=== PATIENT | female | born 2000 | race Hispanic/Latino ===

== ENCOUNTER 2018-09-29 01:14 | Emergency (ER) | payer OTHER, SELFPAY ==
[2018-09-29] MEDS ORDERED: FAMOTIDINE 20 MG TAB ONE (02:18)
[2018-09-29] MEDS ORDERED: ONDANSETRON 4 MG (ODT) TAB ONE (02:18)
--- NOTE | 2018-09-29 02:48 | EDPHYS ---
Physician Documentation [facility] Name: Adriana Freed Age: 17 yrs Sex: Female : 2000 Arrival Date: 09/29/2018 Time: 01:18 Bed 7 Private MD: ED Physician Reza Adair HPI: 09/29 01:40 This 17 yrs old Female presents to ER via Ambulatory with complaints of cp Vomiting. 01:40 The patient presents to the emergency department with nausea, that is moderate, cp vomiting, that is intermittent. 01:40 Onset: The symptoms/episode began/occurred today. Possible causes: unknown. Associated cp signs and symptoms: Pertinent positives: abdominal pain, Pertinent negatives: anorexia, constipation, diarrhea, fever. Severity of symptoms: in the emergency department the symptoms are unchanged despite home interventions. 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 - Social history:: Smoking status: Patient/guardian denies using tobacco. - Ebola Screening: : Patient negative for fever greater than or equal to 101.5 degrees Fahrenheit, and additional compatible Ebola Virus Disease symptoms Patient denies exposure to infectious person Patient denies travel to an Ebola-affected area in the 21 days before illness onset No symptoms or risks identified at this time. ROS: 01:45 Constitutional: Negative for body aches, chills, fever, poor PO intake. cp 01:45 Eyes: Negative for injury, pain, redness, and discharge. cp 01:45 ENT: Negative for drainage from ear(s), difficulty swallowing, difficulty handling secretions. 01:45 Respiratory: Negative for cough, shortness of breath, wheezing. 01:45 Abdomen/GI: Positive for abdominal pain, nausea and vomiting, Negative for diarrhea, constipation, anorexia, black/tarry stool, rectal bleeding. 01:45 Back: Negative for pain at rest, pain with movement, radiated pain. 01:45 Skin: Negative for rash. 01:45 Neuro: Negative for headache, weakness. 01:45 All other systems are negative. Exam: 01:50 Constitutional: The patient appears in no acute distress, alert, awake, non-toxic, well cp developed, well nourished. 01:50 Head/Face: Normocephalic, atraumatic. cp 01:50 Eyes: Periorbital structures: appear normal, Conjunctiva: normal, no exudate, no injection, Sclera: no appreciated abnormality, Lids and lashes: appear normal, bilaterally. 01:50 ENT: External ear(s): are unremarkable, Nose: is normal, Mouth: Lips: moist, Oral mucosa: pink and intact, moist, Posterior pharynx: is normal, airway is patent, no erythema, no exudate. 01:50 Chest/axilla: Inspection: normal, Palpation: is normal, no crepitus, no tenderness. 01:50 Cardiovascular: Rate: tachycardic, Rhythm: regular. 01:50 Respiratory: the patient does not display signs of respiratory distress, Respirations: normal, no use of accessory muscles, no retractions, no splinting, no tachypnea, labored breathing, is not present, Breath sounds: are clear throughout, no decreased breath sounds, no stridor, no wheezing. 01:50 Abdomen/GI: Inspection: abdomen appears normal, Bowel sounds: active, all quadrants, Palpation: soft, in all quadrants, mild abdominal tenderness, in the epigastric area, rebound tenderness, is not appreciated, voluntary guarding, is not appreciated, involuntary guarding, is not appreciated. 01:50 Back: pain, is absent, ROM is normal. Vital Signs: 01:21 BP 141 / 96; Pulse 110; Resp 20; Temp 98.2; Pulse Ox 99% on R/A; Weight 81.65 kg; ed1 Height 5 ft. 3 in. (160.02 cm); Pain 5/10; 03:12 BP 113 / 71; Pulse 90; Resp 18; Pulse Ox 98% on R/A; ea 01:21 Body Mass Index 31.89 (81.65 kg, 160.02 cm) ed1 MDM: 01:36 Patient medically screened. cp 02:00 Differential diagnosis: gastritis, cholecystitis, pancreatitis, appendicitis, viral cp gastroenteritis, gastroenteritis. 02:46 Data reviewed: vital signs, nurses notes. cp 02:46 Counseling: I had a detailed discussion with the patient and/or guardian regarding: the cp historical points, exam findings, and any diagnostic results supporting the discharge/admit diagnosis, to return to the emergency department if symptoms worsen or persist or if there are any questions or concerns that arise at home. Response to treatment: the patient's symptoms have markedly improved after treatment, and as a result, I will discharge patient. 09/29 02:16 Order name: PO challenge; Complete Time: 03:35 cp Administered Medications: 02:07 Drug: Zofran 4 mg Route: PO; lp1 03:00 Follow up: Response: No adverse reaction; Marked relief of symptoms ea 02:43 Drug: Pepcid 20 mg Route: PO; lp1 03:35 Follow up: Response: No adverse reaction; Marked relief of symptoms ea Disposition: 06:37 Co-signature as Attending Physician, Reza Adair MD. rn Disposition: 09/29/18 02:47 Discharged to Home. Impression: Nausea and vomiting. - Condition is Stable. - Discharge Instructions: Nausea and Vomiting, Adult. - Prescriptions for Pepcid 20 mg Oral Tablet - take 1 tablet by ORAL route every 12 hours for 5 days; 10 tablet. Zofran 4 mg Oral Tablet - take 1 tablet by ORAL route every 12 hours As needed; 20 tablet. - Work release form, Medication Reconciliation Form, Thank You Letter, Antibiotic Education, Prescription Opioid Use form. - Follow up: Private Physician; When: 1 - 2 days; Reason: Worsening of condition. - Problem is new. - Symptoms have improved. Signatures: Reza Adair MD MD rn Riggs, Erika RN RN ed1 María Duke RN RN lp1 Unruly Soto PA PA cp Cheryle Street RN RN ea Corrections: (The following items were deleted from the chart) 03:39 02:47 09/29/2018 02:47 Discharged to Home. Impression: Nausea and vomiting. Condition ea is Stable. Forms are Medication Reconciliation Form, Thank You Letter, Antibiotic Education, Prescription Opioid Use. Follow up: Private Physician; When: 1 - 2 days; Reason: Worsening of condition. Problem is new. Symptoms have improved. cp
--- NOTE | 2018-09-29 02:48 | ER ---
Nurse's Notes [facility] Name: Adriana Freed Age: 17 yrs Sex: Female : 2000 Arrival Date: 09/29/2018 Time: 01:18 Bed 7 Private MD: Diagnosis: Nausea and vomiting Presentation: 09/29 01:20 Presenting complaint: Patient states: My stomach hurts and I have been throwing up. I ed1 never throw up. Transition of care: patient was not received from another setting of care. Onset of symptoms was September 29, 2018. Risk Assessment: Do you want to hurt yourself or someone else? Patient reports no desire to harm self or others. Initial Sepsis Screen: Does the patient meet any 2 criteria? No. Patient's initial sepsis screen is negative. Does the patient have a suspected source of infection? No. Patient's initial sepsis screen is negative. Care prior to arrival: None. 01:20 Method Of Arrival: Ambulatory ed1 01:20 Acuity: FREDIS 3 ed1 Triage Assessment: 01:21 General: Appears uncomfortable, Behavior is calm, cooperative. Pain: Complains of pain ed1 in abdomen Pain currently is 5 out of 10 on a pain scale. GI: Reports lower abdominal pain, nausea, vomiting, Patient currently denies diarrhea. 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 - Social history:: Smoking status: Patient/guardian denies using tobacco. - Ebola Screening: : Patient negative for fever greater than or equal to 101.5 degrees Fahrenheit, and additional compatible Ebola Virus Disease symptoms Patient denies exposure to infectious person Patient denies travel to an Ebola-affected area in the 21 days before illness onset No symptoms or risks identified at this time. Screenin:39 Abuse screen: Denies threats or abuse. Denies injuries from another. Nutritional lp1 screening: No deficits noted. Tuberculosis screening: No symptoms or risk factors identified. Fall Risk None identified. Assessment: 02:00 General: Appears uncomfortable, Behavior is appropriate for age. Pain: Complains of lp1 pain in abdomen. Neuro: No deficits noted. Cardiovascular: No deficits noted. Respiratory: No deficits noted. GI: Abdomen is non-distended, Bowel sounds present X 4 quads. Reports nausea, vomiting. : No deficits noted. EENT: No deficits noted. Derm: Skin is pink, warm \T\ dry. Musculoskeletal: No deficits noted. 02:43 Reassessment: Patient states episode of vomiting; States nausea feeling improved after lp1 vomiting; drinking water at this time. 03:30 Reassessment: Patient and/or family updated on plan of care and expected duration. Pain ea level reassessed. Patient is alert, oriented x 3, equal unlabored respirations, skin warm/dry/pink. Discharge instruction given to patient, verbalized the understanding of instruction. No s/s of pain or discomfort noted at this time. Patient states feeling better. Patient states symptoms have improved. Vital Signs: 01:21 BP 141 / 96; Pulse 110; Resp 20; Temp 98.2; Pulse Ox 99% on R/A; Weight 81.65 kg; ed1 Height 5 ft. 3 in. (160.02 cm); Pain 5/10; 03:12 BP 113 / 71; Pulse 90; Resp 18; Pulse Ox 98% on R/A; ea 01:21 Body Mass Index 31.89 (81.65 kg, 160.02 cm) ed1 ED Course: 01:18 Patient arrived in ED. am2 01:20 Triage completed. ed1 01:22 Arm band placed on right wrist. ed1 01:24 Unruly Soto PA is PHCP. cp 01:24 Reza Adair MD is Attending Physician. cp 02:04 María Duke, BRITT is Primary Nurse. lp1 02:40 Patient has correct armband on for positive identification. lp1 03:36 No provider procedures requiring assistance completed. Patient did not have IV access ea during this emergency room visit. Administered Medications: 02:07 Drug: Zofran 4 mg Route: PO; lp1 03:00 Follow up: Response: No adverse reaction; Marked relief of symptoms ea 02:43 Drug: Pepcid 20 mg Route: PO; lp1 03:35 Follow up: Response: No adverse reaction; Marked relief of symptoms ea Outcome: 02:47 Discharge ordered by . cp 03:36 Discharged to home ambulatory, with significant other. ea 03:36 Condition: improved 03:36 Discharge instructions given to patient, Instructed on discharge instructions, follow up and referral plans. medication usage, Demonstrated understanding of instructions, follow-up care, medications, Prescriptions given X 2. 03:39 Patient left the ED. ea Signatures: Bianca De La Cruz RN RN ed1 María Duke RN RN lp1 Unruly Soto PA PA cp Moreno, Amanda am2 Cheryle Street RN RN ea Corrections: (The following items were deleted from the chart) 01:22 01:21 BP 141 / 96; Pulse 110bpm; Resp 20bpm; Pulse Ox 99% RA; Temp 98.2F; 81.65 kg; ed1 Height 5 ft. 3 in.; BMI: 31.8; ed1
[2018-09-29 04:24] VITALS: TEMP 98.2
[2018-09-29 04:25] VITALS: BP 113/71; O2SAT 98
== END 2018-09-29 03:39 | disposition home or self-care (01) ==
LOC: ER 01:14
DX: R11.2 Nausea with vomiting, unspecified (principal)
CPT/HCPCS: 99283

== ENCOUNTER 2019-05-10 22:22 | Emergency (ER) | payer SELFPAY ==
[2019-05-10] MEDS ORDERED: NA CHLORIDE 0.9% 1,000 ML ONE (22:49)
[2019-05-10 23:24] LABS: Absolute Lymphocytes (CBC) 1.3 K/uL (0.7-4.9); Basophils % 0.5 % (0-1.3); Hematocrit 40.6 % (36.0-45.0); Lymphocytes % 23.6 % (15.3-44.8); MPV 9.8 fL (7.6-11.3); RBC Red Blood Cell Count 4.87 M/uL (3.86-4.86)
[2019-05-10 23:27] LABS: Urine Blood TRACE (NEG); Urine Glucose NEGATIVE (NEG); Urine Protein 1+ (NEG)
[2019-05-10 23:48] LABS: Albumin 3.9 g/dL (3.4-5.0); Bilirubin Direct 0.1 mg/dL (0-0.2); Bilirubin Total 0.4 mg/dL (0.2-1.0); Potassium 3.2 mmol/L (3.5-5.1); Protein, Total 7.9 g/dL (6.4-8.2)
--- NOTE | 2019-05-10 23:55 | ER ---
Nurse's Notes [facility] Name: Adriana Freed Age: 18 yrs Sex: Female : 2000 Arrival Date: 05/10/2019 Time: 22:25 Bed 6 Private MD: Diagnosis: Streptococcal pharyngitis; state, incidental Presentation: 05/10 22:30 Presenting complaint: Patient states: started last Wednesday chills , headache, stomach rr5 pain, on and off fever max of T 101 F, I am taking tylenol but it's not working. feels like a flu symptoms, feels nauseous but no vomiting. 22:30 Transition of care: patient was not received from another setting of care. Onset of rr5 symptoms was May 08, 2019. Risk Assessment: Do you want to hurt yourself or someone else? Patient reports no desire to harm self or others. Initial Sepsis Screen: Does the patient meet any 2 criteria? No. Patient's initial sepsis screen is negative. Does the patient have a suspected source of infection? No. Patient's initial sepsis screen is negative. Care prior to arrival: Medication(s) given: Tylenol. 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 - Social history:: Smoking status: Patient/guardian denies using tobacco, Patient/guardian denies using alcohol, street drugs. - Ebola Screening: : Patient negative for fever greater than or equal to 101.5 degrees Fahrenheit, and additional compatible Ebola Virus Disease symptoms Patient denies exposure to infectious person Patient denies travel to an Ebola-affected area in the 21 days before illness onset. Vital Signs: 22:38 BP 143 / 80; Pulse 116; Resp 19; Temp 99.1; Pulse Ox 99% ; Weight 77.11 kg; Height 5 rr5 ft. 4 in. (162.56 cm); Pain 6/10; 05/11 00:00 BP 125 / 80; Pulse 118; Resp 18; Temp 100.4; Pulse Ox 99% ; rr5 12 22:38 Body Mass Index 29.18 (77.11 kg, 162.56 cm) rr5 ED Course: 05/10 22:25 Patient arrived in ED. ag3 22:28 Stoney Vasquez, RN is Primary Nurse. rr5 22:36 Sony[facility] Morales [facility]C [facility]. snw 22:36 Chad Welch MD is Attending Physician. snw 22:38 Triage completed. rr5 22:39 Arm band placed on. rr5 22:40 Flu and/or RSV swab sent to lab. Strep swab sent to lab. rr5 23:00 Inserted saline lock: 20 gauge in right antecubital area, using aseptic technique. rr5 Blood collected. Administered Medications: 23:00 Drug: NS 0.9% 1000 ml Route: IV; Rate: 1 bolus; Site: right antecubital; rr5 05/11 00:00 Drug: Potassium Chloride 40 mEq Route: PO; rr5 00:15 Drug: Bicillin L-A 2.4 million units {Note: left gluteus 2ml and right gluteus 2ml.} rr5 Route: IM; Site: left gluteus; 00:20 Drug: Tylenol 1000 mg Route: PO; rr5 Outcome: 05/10 23:54 Discharge ordered by . snw 05/11 00:54 Patient left the ED. rr5 Signatures: Sonya Morales FNP-C CATEGORY ANALYST-Csnw Radha Lee 3 Stoney Vasquez, RN RN rr5
--- NOTE | 2019-05-10 23:56 | EDPHYS ---
Physician Documentation [facility] Name: Adriana Freed Age: 18 yrs Sex: Female : 2000 Arrival Date: 05/10/2019 Time: 22:25 Bed 6 Private MD: ED Physician Chad Welch HPI: 05/11 00:00 This 18 yrs old Female presents to ER via Ambulatory with complaints of Fever. snw 00:00 The patient reports fever, not measured (subjective). Onset: The symptoms/episode snw began/occurred suddenly, 3 day(s) ago, and became persistent. Associated signs and symptoms: Pertinent positives: decreased appetite, nausea. Severity of symptoms: At their worst the symptoms were moderate. It is unknown whether or not the patient has had similar symptoms in the past. It is unknown whether or not the patient has recently seen a physician. 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 - Social history:: Smoking status: Patient/guardian denies using tobacco, Patient/guardian denies using alcohol, street drugs. - Ebola Screening: : Patient negative for fever greater than or equal to 101.5 degrees Fahrenheit, and additional compatible Ebola Virus Disease symptoms Patient denies exposure to infectious person Patient denies travel to an Ebola-affected area in the 21 days before illness onset. ROS: 23:57 Eyes: Negative for injury, pain, redness, and discharge, ENT: Negative for injury, snw pain, and discharge, Neck: Negative for injury, pain, and swelling, Cardiovascular: Negative for chest pain, palpitations, and edema, Respiratory: Negative for shortness of breath, cough, wheezing, and pleuritic chest pain. 23:57 Back: Negative for injury and pain, : Negative for injury, bleeding, discharge, and swelling, MS/Extremity: Negative for injury and deformity, Skin: Negative for injury, rash, and discoloration, Neuro: Negative for headache, weakness, numbness, tingling, and seizure, Hematologic/Lymphatic: Negative for swollen nodes, abnormal bleeding, and unusual bruising. 23:57 Constitutional: Positive for body aches, fever, poor PO intake. 23:57 Abdomen/GI: Positive for nausea. Exam: 05/11 00:46 Constitutional: This is a well developed, well nourished patient who is awake, alert, snw and in no acute distress. Head/Face: Normocephalic, atraumatic. Eyes: Pupils equal round and reactive to light, extra-ocular motions intact. Lids and lashes normal. Conjunctiva and sclera are non-icteric and not injected. Cornea within normal limits. Periorbital areas with no swelling, redness, or edema. ENT: Nares patent. No nasal discharge, no septal abnormalities noted. Tympanic membranes are normal and external auditory canals are clear. Oropharynx with no redness, swelling, or masses, exudates, or evidence of obstruction, uvula midline. Mucous membranes moist. Neck: Trachea midline, no thyromegaly or masses palpated, and no cervical lymphadenopathy. Supple, full range of motion without nuchal rigidity, or vertebral point tenderness. No Meningismus. Chest/axilla: Normal chest wall appearance and motion. Nontender with no deformity. No lesions are appreciated. Cardiovascular: Tachycardic rate and rhythm with a normal S1 and S2. No gallops, murmurs, or rubs. Normal PMI, no JVD. No pulse deficits. Respiratory: Lungs have equal breath sounds bilaterally, clear to auscultation and percussion. No rales, rhonchi or wheezes noted. No increased work of breathing, no retractions or nasal flaring. Abdomen/GI: Soft, non-tender, with normal bowel sounds. No distension or tympany. No guarding or rebound. No evidence of tenderness throughout. Back: No spinal tenderness. No costovertebral tenderness. Full range of motion. Skin: Warm, dry with normal turgor. Normal color with no rashes, no lesions, and no evidence of cellulitis. MS/ Extremity: Pulses equal, no cyanosis. Neurovascular intact. Full, normal range of motion. Neuro: Awake and alert, GCS 15, oriented to person, place, time, and situation. Cranial nerves II-XII grossly intact. Motor strength 5/5 in all extremities. Sensory grossly intact. Cerebellar exam normal. Normal gait. Psych: Awake, alert, with orientation to person, place and time. Behavior, mood, and affect are within normal limits. Vital Signs: 05/10 22:38 BP 143 / 80; Pulse 116; Resp 19; Temp 99.1; Pulse Ox 99% ; Weight 77.11 kg; Height 5 rr5 ft. 4 in. (162.56 cm); Pain 6/10; 05/11 00:00 BP 125 / 80; Pulse 118; Resp 18; Temp 100.4; Pulse Ox 99% ; rr5 05/10 22:38 Body Mass Index 29.18 (77.11 kg, 162.56 cm) rr5 MDM: 05/10 22:41 Patient medically screened. snw 23:56 Data reviewed: vital signs, nurses notes. Data interpreted: Pulse oximetry: on room air snw is 99 %. Interpretation: normal. Counseling: I had a detailed discussion with the patient and/or guardian regarding: the historical points, exam findings, and any diagnostic results supporting the discharge/admit diagnosis, the presence of at least one elevated blood pressure reading (>120/80) during this emergency department visit, lab results, the need for outpatient follow up, to return to the emergency department if symptoms worsen or persist or if there are any questions or concerns that arise at home. Admission orders: after a detailed discussion of the patient's condition and case, the admit orders are written by me. Special discussion: I have referred the patient to see his PCP for further evaluation of high blood pressure. Based on the history and exam findings, there is no indication for further emergent testing or inpatient evaluation. I discussed with the patient/guardian the need to see the OB Gyne specialist for further evaluation of the symptoms. I discussed with the patient/guardian the need to see the primary care provider for further evaluation of the symptoms. 05/10 22:39 Order name: Flu; Complete Time: 23:51 rr5 05/10 22:43 Order name: Basic Metabolic Panel; Complete Time: 23:51 snw 05/10 22:43 Order name: CBC with Diff; Complete Time: 23:34 snw 05/10 22:43 Order name: Creatinine for Radiology; Complete Time: 23:46 snw 05/10 22:43 Order name: Hepatic Function; Complete Time: 23:51 snw 05/10 22:43 Order name: Lipase; Complete Time: 23:51 snw 05/10 22:46 Order name: Strep; Complete Time: 23:51 snw 05/10 23:08 Order name: Urine Culture snw 05/10 23:08 Order name: Urine Microscopic Only; Complete Time: 00:09 snw 05/10 23:17 Order name: Urine Dipstick--Ancillary (enter results); Complete Time: 23:34 cm6 05/10 23:17 Order name: Urine --Ancillary (enter results); Complete Time: 23:34 cm6 05/10 22:43 Order name: Labs collected and sent; Complete Time: 23:14 snw 05/10 23:08 Order name: Urine Test (obtain specimen); Complete Time: 23:14 snw 05/10 23:08 Order name: Urine Dipstick-Ancillary (obtain specimen); Complete Time: 23:15 snw Administered Medications: 23:00 Drug: NS 0.9% 1000 ml Route: IV; Rate: 1 bolus; Site: right antecubital; rr5 05/11 00:00 Drug: Potassium Chloride 40 mEq Route: PO; rr5 00:15 Drug: Bicillin L-A 2.4 million units {Note: left gluteus 2ml and right gluteus 2ml.} rr5 Route: IM; Site: left gluteus; 00:20 Drug: Tylenol 1000 mg Route: PO; rr5 Disposition: 05/10/19 23:54 Discharged to Home. Impression: Streptococcal pharyngitis, state, incidental. - Condition is Stable. - Discharge Instructions: Fever, Adult, Strep Throat, First Trimester of , Qren-iv-Iaoh, Immunizations and , Rehydration, Adult, Eating Plan for Women. - Prescriptions for Vitamin 27- 0.8 mg Oral Tablet - take 1 tablet by ORAL route once daily; 60 tablet. - Work release form, Medication Reconciliation Form, Thank You Letter, Antibiotic Education, Prescription Opioid Use form. - Follow up: Private Physician; When: 2 - 3 days; Reason: Recheck today's complaints, Continuance of care, Re-evaluation by your physician. Follow up: Emergency Department; When: As needed; Reason: Worsening of condition. Signatures: Dispatcher [employer] EDSonya Alanis FNP-C CLINIC MANAGER-Csnw Stoney Vasquez, RN RN rr5 Corrections: (The following items were deleted from the chart) 00:54 12 23:54 05/10/2019 23:54 Discharged to Home. Impression: Streptococcal pharyngitis; rr5 state, incidental. Condition is Stable. Forms are Medication Reconciliation Form, Thank You Letter, Antibiotic Education, Prescription Opioid Use. Follow up: Private Physician; When: 2 - 3 days; Reason: Recheck today's complaints, Continuance of care, Re-evaluation by your physician. Follow up: Emergency Department; When: As needed; Reason: Worsening of condition. snw
[2019-05-10] MEDS ORDERED: POTASSIUM CL SA 10 MEQ TAB PO ONE (23:57)
[2019-05-11 00:08] LABS: Urine Bacteria <20 /HPF (<20); Urine Culture Reflex Order NOT NEEDED
[2019-05-11] MEDS ORDERED: ACETAMINOPHEN 500 MG TAB ONE (00:08)
[2019-05-11 00:09] LABS: Urine RBC <5 /HPF (NONE SEEN)
[2019-05-11] MEDS ORDERED: PEN G BENZ LA 2.4 MU/4 ML SYRINGE IM ONE (00:12)
[2019-05-11 02:36] VITALS: O2SAT 99
[2019-05-11 02:38] VITALS: BP 125/80; TEMP 100.4
== END 2019-05-11 00:54 | disposition home or self-care (01) ==
LOC: ER 22:22
DX: J02.0 Streptococcal pharyngitis (principal); Z33.1 Pregnant state, incidental
CPT/HCPCS: 36415; 80048; 80076; 81003; 81015; 81025; 83690; 85025; 87081; 87086; 87088; 87804; 96360; 96361; 96372; 99284; J0561; J7030

== ENCOUNTER 2019-06-25 22:07 | Emergency (ER) | payer OTHER ==
[2019-06-25 23:03] LABS: Urine Blood 2+ (NEG); Urine Glucose NEGATIVE (NEG); Urine Protein NEGATIVE (NEG); Urine Specific Gravity >1.030 (1.005-1.030); Urine pH 6.5 (5.0-7.0)
[2019-06-25 23:08] LABS: Basophils % 0.3 % (0-1.3); Hematocrit 36.2 % (36.0-45.0); Lymphocytes % 25.3 % (15.3-44.8); MPV 9.5 fL (7.6-11.3)
[2019-06-25 23:45] LABS: BUN Blood Urea Nitrogen 7 mg/dL (7-18); Bicarbonate 23 mmol/L (21-32); Glucose Level 95 mg/dL (74-106); HCG, Quantitative 55119 mIU/mL (1-3); Potassium 3.4 mmol/L (3.5-5.1); Sodium Level 140 mmol/L (136-145)
--- NOTE | 2019-06-26 00:14 | ER ---
Nurse's Notes [facility] Name: Adriana Freed Age: 18 yrs Sex: Female : 2000 Arrival Date: 06/25/2019 Time: 22:09 Bed 4 Private MD: Diagnosis: Threatened Presentation: 06/25 22:16 Presenting complaint: Patient states: she is 11 weeks and started having mild bb abdominal cramping with vaginal bleeding x 3 hours. Transition of care: patient was not received from another setting of care. Onset of symptoms was June 25, 2019. Risk Assessment: Do you want to hurt yourself or someone else? Patient reports no desire to harm self or others. Initial Sepsis Screen: Does the patient meet any 2 criteria? No. Patient's initial sepsis screen is negative. Does the patient have a suspected source of infection? No. Patient's initial sepsis screen is negative. Care prior to arrival: None. 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 - Social history:: Smoking status: Patient denies any tobacco usage or history of. - Ebola Screening: : No symptoms or risks identified at this time. Screenin:27 Abuse screen: Denies threats or abuse. Denies injuries from another. Nutritional rv screening: No deficits noted. Tuberculosis screening: No symptoms or risk factors identified. Fall Risk None identified. Assessment: 22:25 Obstetrical Assessment: General assessment: awake and alert, Patient reports abdominal rv cramping. General: Appears in no apparent distress. Behavior is calm, cooperative. Pain: Complains of pain in anterior aspect of right lateral abdomen and posterior aspect of left lateral abdomen Pain currently is 3 out of 10 on a pain scale. Quality of pain is described as crampy. Neuro: Level of Consciousness is awake, alert, obeys commands, Oriented to person, place, time, situation. Cardiovascular: Rhythm is sinus rhythm. Respiratory: Airway is patent. GI: Reports cramping, Patient currently denies anorexia, constipation, diarrhea, nausea, vomiting. : No signs and/or symptoms were reported regarding the genitourinary system. Vital Signs: 22:18 Weight 90.72 kg (R); Height 5 ft. 4 in. (162.56 cm) (R); Pain 3/10; bb 22:25 BP 133 / 85; Pulse 111; Resp 16 S; Temp 98.7(O); Pulse Ox 100% on R/A; bb 06/26 00:45 BP 125 / 82; Pulse 89; Resp 17; Pulse Ox 100% on R/A; rv 06/25 22:18 Body Mass Index 34.33 (90.72 kg, 162.56 cm) bb ED Course: 06/25 22:09 Patient arrived in ED. cl3 22:12 Moiz Almeida PA [facility]. kiel 22:12 Unruly Tracy MD is Attending Physician. [facility] 22:17 Triage completed. bb 22:18 Arm band placed on Patient placed in an exam room, on a stretcher, on pulse oximetry. bb Family accompanied patient. 22:23 Christos Martinez, BRITT is Primary Nurse. rv 22:27 Patient has correct armband on for positive identification. Bed in low position. Call rv light in reach. Pulse ox on. NIBP on. 22:43 Inserted saline lock: 20 gauge in right antecubital area, using aseptic technique. rv Blood collected. 06/26 00:46 Assist provider with pelvic exam: Set up pelvic tray. Performed by Moiz VILLAGOMEZ rv Patient tolerated well. WITH MYKENA AT BEDSIDE. IV discontinued, intact, bleeding controlled, No redness/swelling at site. Pressure dressing applied. Administered Medications: No medications were administered Outcome: 00:13 Discharge ordered by . kiel 00:46 Discharged to home ambulatory, with family. rv 00:46 Condition: good 00:46 Discharge instructions given to patient, Instructed on discharge instructions, follow up and referral plans. Demonstrated understanding of instructions, follow-up care. 00:47 Patient left the ED. rv Signatures: Moiz Almeida PA PA jmm Ballard, Brenda, RN RN bb Christos Martinez, RN RN rv Ethan, Jen cl3
--- NOTE | 2019-06-26 00:14 | EDPHYS ---
Physician Documentation [facility] Name: Adriana Freed Age: 18 yrs Sex: Female : 2000 Arrival Date: 06/25/2019 Time: 22:09 Bed 4 Private MD: ED Physician Unruly Tracy HPI: 06/26 00:08 This 18 yrs old Female presents to ER via Ambulatory with complaints of jmm Vaginal Bleeding, + Preg <12wks. 00:08 The patient presents to the emergency department with vaginal bleeding. jmm course: care: at a clinic. Associated signs and symptoms: Pertinent positives: vaginal bleeding, Pertinent negatives: fever. This is a 18 year old female currently 11 weeks IUP that presents to the ED with complaints of vaginal bleeding and pelvic cramping. Denies vomiting, back pain, weakness, or shortness of breath. . 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 - Social history:: Smoking status: Patient denies any tobacco usage or history of. - Ebola Screening: : No symptoms or risks identified at this time. ROS: 06/26 00:08 Constitutional: Negative for fever, chills, and weight loss, Cardiovascular: Negative jmm for chest pain, palpitations, and edema, Respiratory: Negative for shortness of breath, cough, wheezing, and pleuritic chest pain. : Positive for vaginal bleeding. All other systems are negative. Exam: 00:08 Constitutional: This is a well developed, well nourished patient who is awake, alert, jmm and in no acute distress. Head/Face: atraumatic. Eyes: EOMI, no conjunctival erythema appreciated ENT: Moist Mucus Membranes Neck: Trachea midline, Supple Chest/axilla: Normal chest wall appearance and motion. Cardiovascular: Regular rate and rhythm. No edema appreciated Respiratory: Normal respirations, no respiratory distress appreciated Abdomen/GI: Non distended, soft Back: Normal ROM 00:08 Skin: General appearance color normal MS/ Extremity: Moves all extremities, no obvious deformities appreciated, no edema noted to the lower extremities Neuro: Awake and alert, normal gait Psych: Behavior is normal, Mood is normal, Patient is cooperative and pleasant 00:08 : Pelvic Exam: External exam: is normal, Speculum exam: scant bleeding, os that is closed. Vital Signs: 06/25 22:18 Weight 90.72 kg (R); Height 5 ft. 4 in. (162.56 cm) (R); Pain 3/10; bb 22:25 BP 133 / 85; Pulse 111; Resp 16 S; Temp 98.7(O); Pulse Ox 100% on R/A; bb 06/26 00:45 BP 125 / 82; Pulse 89; Resp 17; Pulse Ox 100% on R/A; rv 06/25 22:18 Body Mass Index 34.33 (90.72 kg, 162.56 cm) bb MDM: 06/25 22:15 Patient medically screened. [facility] 06/26 00:11 Data reviewed: vital signs, nurses notes. Counseling: I had a detailed discussion with kiel the patient and/or guardian regarding: the historical points, exam findings, and any diagnostic results supporting the discharge/admit diagnosis, lab results, the need for outpatient follow up, to return to the emergency department if symptoms worsen or persist or if there are any questions or concerns that arise at home. ED course: Os is closed, patient is alert and non toxic in appearance in the ED. Advised to follow up with ob for reevaluation. Patient otherwise given strict return precautions. patient understood and agrees with the plan of care. . 06/25 22:30 Order name: Urine Dipstick--Ancillary (enter results); Complete Time: 23:14 ma 06/25 22:30 Order name: Urine --Ancillary (enter results); Complete Time: 23:14 ma 06/25 22:32 Order name: Quantitative Hcg; Complete Time: 23:58 [facility] 06/25 22:32 Order name: Abo/rh Typing; Complete Time: 00:13 [facility] 06/25 22:32 Order name: Basic Metabolic Panel; Complete Time: 23:58 [facility] 06/25 22:32 Order name: CBC with Diff; Complete Time: 23:14 [facility] 06/25 22:16 Order name: Urine Dipstick-Ancillary (obtain specimen); Complete Time: 22:29 [facility] 06/25 22:16 Order name: Urine Test (obtain specimen); Complete Time: 22:29 [facility] 06/25 22:32 Order name: IV Saline Lock; Complete Time: 22:43 [facility] 06/25 22:32 Order name: Labs collected and sent; Complete Time: :43 [facility] 06/25 22:32 Order name: NPO; Complete Time: :43 [facility] 06/25 23:28 Order name: Pelvic Exam Setup; Complete Time: 00:45 [facility] Administered Medications: No medications were administered Disposition: 08:05 Co-signature as Attending Physician, Unruly Tracy MD I agree with the assessment and massimo plan of care. Disposition: 06/26/19 00:13 Discharged to Home. Impression: Threatened . - Condition is Stable. - Discharge Instructions: Threatened Miscarriage, Pelvic Rest. - Medication Reconciliation Form, Thank You Letter, Antibiotic Education, Prescription Opioid Use form. - Follow up: Private Physician; When: 2 - 3 days; Reason: Recheck today's complaints, Continuance of care, Re-evaluation by your physician. Signatures: Dispatcher [employer] Claudia Pizano, RN RN Unruly Garcia MD MD cha Mickail, Joel, PA PA [facility] Dorina Johnston, RN RN Christos Dickerson RN RN rv Corrections: (The following items were deleted from the chart) 00:47 00:13 06/26/2019 00:13 Discharged to Home. Impression: Threatened . Condition rv is Stable. Forms are Medication Reconciliation Form, Thank You Letter, Antibiotic Education, Prescription Opioid Use. Follow up: Private Physician; When: 2 - 3 days; Reason: Recheck today's complaints, Continuance of care, Re-evaluation by your physician. efrain
[2019-06-26 01:06] VITALS: TEMP 98.7; O2SAT 100
[2019-06-26 01:07] VITALS: BP 125/82
== END 2019-06-26 00:47 | disposition home or self-care (01) ==
LOC: ER 22:07
DX: O20.0 Threatened abortion (principal); Z3A.11 11 weeks gestation of pregnancy
CPT/HCPCS: 36415; 80048; 81003; 81025; 84702; 85025; 86900; 86901; 99284

== ENCOUNTER 2023-05-20 17:20 | Emergency (ER) | payer OTHER, SELFPAY ==
--- OUTSIDE RECORDS SUMMARY | 2023-05-20 17:25 | XMS REPORT | Continuity of Care Document ---
Author Name Unknown Address [address] [facility] [address]. [address] [place] [address] [facility] thconnect Address [address] [facility]. [address] [place] [address] Care Team Providers Care Senior Radiation Therapist Name Role Phone Pcp, Patient Does Not Have A Primary Care Physic florencia Demario Ritter Attending Clinician UnavailSeveriano Brady Attending Clinician [phone] Unknown, Attending Attending Clinician Unavailab SEVERIANO Verduzco Attending Clinician Unavailable Doctor Unassigned, [place] Attending Clinician U CACHORRO Pettit Attending Clinician Unavailable Markell Hamilton MD Attending Clinician [phone] UNKNOWN, ATTENDING Attending Clinician UnavailKristy Boykin PA-C Attending Clinician [phone] Demario Ritter Admitting Clinician Unavailab mg Payers Payer Name Policy Type Policy Number Effective Date Expirati on Date Source Allergies, Adverse Reactions, Alerts Allergy Name Allergy Type Status Severity Reaction(s) Onset Date Inactive Date Treating Clinician Comments Source No Known Allergie s DA Active U 01-11 00:00: 00 [facility] No Known Allergie s DA Active U 01-11 00:00: 00 [facility] [place] NO KNOWN ALLERGIE S Drug Class Active [facility] Social History Social Habit Start Date Stop Date Quantity Comments Source Gender identity [facility] Sexual orientation U [facility] History of Social function 2020-12-27 00:00:00 2020-12-27 00:00:00 [facility] Tobacco use and exposure 2019-08-04 00:00:00 2019-08-04 00:00:00 Smokeless tobacco non-user [facility] Sex Assigned At 2000 00:00:00 2000 00:00:00 [facility] Smoking Status Start Date Stop Date Source Never smoked tobacco [facility] Medications Ordered Medication Name Filled Medication Name Start Date Stop Date Current Medication? Ordering Clinician Indication Dosage Frequency Signature (SIG) Comments Components Source nirmatrelvi r-ritonavir (PAXLOVID) 300 mg (150 mg x 2)-100 mg tablet 02-06 00:00: 00 Yes [id number] 3{tbl} Take 3 tablets by mouth in the morning and 3 tablets in the evening. [facility] nirmatrelvi r-ritonavir (PAXLOVID) 300 mg (150 mg x 2)-100 mg tablet 02-06 00:00: 00 Yes [id number] 3{tbl} Take 3 tablets by mouth in the morning and 3 tablets in the evening. [facility] cetirizine (ZYRTEC) 10 mg tablet 12-27 00:00: 00 Yes [id number] 10mg Take 1 tablet by mouth daily. [facility] azelastine 137 mcg (0.1 %) nasal spray 12-27 00:00: 00 Yes [id number] 1{spray } Use 1 [place] in each nostril 2 (two) times daily. Use in each nostril as directed [facility] fluticasone propionate 50 mcg/actuati on nasal spray 12-27 00:00: 00 Yes [id number] 1{spray } Use 1 [place] in each nostril daily. [facility] cetirizine (ZYRTEC) 10 mg tablet 12-27 00:00: 00 Yes [id number] 10mg Take 1 tablet by mouth daily. [facility] azelastine 137 mcg (0.1 %) nasal spray 12-27 00:00: 00 Yes [id number] 1{spray } Use 1 [place] in each nostril 2 (two) times daily. Use in each nostril as directed [facility] fluticasone propionate 50 mcg/actuati on nasal spray 12-27 00:00: 00 Yes [id number] 1{spray } Use 1 [place] in each nostril daily. [facility] cetirizine (ZYRTEC) 10 mg tablet 12-27 00:00: 00 Yes [id number] 10mg Take 1 tablet by mouth daily. [facility] azelastine 137 mcg (0.1 %) nasal spray 12-27 00:00: 00 Yes [id number] 1{spray } Use 1 [place] in each nostril 2 (two) times daily. Use in each nostril as directed [facility] fluticasone propionate 50 mcg/actuati on nasal spray 12-27 00:00: 00 Yes [id number] 1{spray } Use 1 [place] in each nostril daily. [facility] azithromyci n 500 mg tablet 08-04 20:20: 36 Yes azithromyc in 500 mg tablet [facility] azithromyci n 500 mg tablet 08-04 20:20: 36 Yes azithromyc in 500 mg tablet [facility] azithromyci n 500 mg tablet 08-04 20:20: 36 Yes azithromyc in 500 mg tablet [facility] azithromyci n 250 mg tablet 08-04 00:00: 00 Yes [id number] 4 tabs now and 4 tabs in 1 week [facility] azithromyci n 250 mg tablet 08-04 00:00: 00 Yes [id number] 4 tabs now and 4 tabs in 1 week [facility] azithromyci n 250 mg tablet 08-04 00:00: 00 Yes [id number] 4 tabs now and 4 tabs in 1 week [facility] Vital Signs Vital Name Observation Time Observation Value Comments S mayte Systolic blood pressure 2023-02-06 20:59:00 115 mm[Hg] [facility] Diastolic blood pressure 2023-02-06 20:59:00 82 mm[Hg] [facility] Heart rate 2023-02-06 20:59:00 83 [facility] 2023-02-06 20:59:00 36.94 Shirley [facility] Respiratory rate 2023-02-06 20:59:00 16 /min [facility] Body height 2023-02-06 20:59:00 157.5 cm [facility] Body weight 2023-02-06 20:59:00 98.657 kg [facility] BMI 2023-02-06 20:59:00 39.78 kg/m2 [facility] Oxygen saturation in Arterial blood by Pulse oximetry 2023-02-06 20:59:00 97 /min [facility] Procedures Procedure Date / Time Performed Performing Clinicia n Source POCT SARS-COV-2 ANTIGEN (BINAX NOW) 2023-02-06 21:01:00 Severiano La [facility] ASSIGNMENT OF BENEFITS 2023-02-06 20:52:49 Docto r Unassigned, [place] [facility] [id number] 2020-01-13 00:00:00 [facility] [id number] 2020-01-13 00:00:00 [facility] Encounters Start Date/Time End Date/Time Encounter Type Admission Type Attending Clinicians Care Facility Care Department Encounter ID Source 2020-01-12 10:48:00 Inpatient EDIE Stone Demario [facility] [id number] [facility] 2023-04-20 16:11:58 2023-04-20 16:11:58 Outpatient S[facility] [id number] James Maldonado 2023-04-09 15:37:58 2023-04-09 15:37:58 Outpatient [facility] [id number] James Maldonado 2023-03-18 16:49:59 2023-03-18 16:49:59 Outpatient SFA [facility] [id number] James Maldonado 2023-02-11 00:00:00 2023-02-11 00:00:00 Telephone Jan Lamansoor [facility] THALIA?[facility] 1..840.114 350.1.13.10 4.2.7.2.686 [id number] [facility] 2023-02-06 16:20:00 2023-02-06 16:40:00 Urgent Care SkylerSeveriano guardado Roxi, Attending [facility] 1..840.114 350.1.13.10 4.2.7.2.686 [id number] [facility] 2023-02-06 16:20:00 2023-02-06 16:20:00 Outpatient R SHAHIDAJAN MendezMANSOOR [facility] [id number] [facility] 2023-02-06 00:00:00 2023-02-06 00:00:00 Orders Only Doctor Unassigned, [place] [facility] 1..840.114 350.1.13.10 4.2.7.2.686 [id number] [facility] 2022-11-23 17:09:00 2022-11-23 17:09:00 Outpatient SFA [facility] [id number] James Maldonado 2022-11-19 13:31:16 2022-11-19 13:31:16 Outpatient SFA SFA [id number] James Maldonado 2020-12-27 09:00:00 2020-12-27 09:00:00 Outpatient CACHORRO ARVIZU [facility] [id number] [facility] 2019-08-04 20:06:09 2019-08-04 20:21:09 Urgent Care [facility]ell [facility] 1..840.114 350.1.13.10 4.2.7.2.686 [id number] 2019-08-04 20:15:00 2019-08-04 20:15:00 Outpatient R UNKNOWN, ATTENDING [facility] [id number] [facility] 2019-07-20 00:00:00 2019-07-20 00:00:00 [address] Huerta [facility]h [facility] 1..840.114 350.1.13.10 4.2.7.2.686 [id number] 2019-07-19 19:10:39 2019-07-19 19:58:04 Urgent Care Bradley Kristy [facility] Health [facility] Bhavesh [id number] 350.1.13.10 [id number] [id number] Results Test Description Test Time Test Comments Results Result Co mments Source [facility], NAAT, [id number] 19:06:50* Test Item Value Reference Range Interpretation Comme nts GONORRHEA, NAAT (test code = 58568) NEGATIVE NEGATIVE IMPORTANT NO DUANE: SEE ANNOUNCEMENT AT [email or web address] Note: Assay methodology is nucleic acid amplification by fine arts teacher mediated amplification (TMA) utilizing the Aptima Combo 2 Assay. CHLAMYDIA, NAAT (test code = 17936) NEGATIVE NEGATIVE IMPORTANT NO DUANE: SEE ANNOUNCEMENT AT [email or web address] Note: Assay methodology is nucleic acid amplification by fine arts teacher mediated amplification (TMA) utilizing the Aptima Combo 2 Assay. UNLESS OTHERWISE INDICATED, ALL TESTING PERFORMED [facility] [address] [place] [id number] ACCOUNTING BOOKKEEPER: NERI GREENWOOD M.D. CLIA NUMBER [id number] [place]. [id number] 03:29:17* Test Item Value Reference Range Interpretation Comme nts RPR RESULT (test code = 3501) NON-REACTIVE NON-REACTIVE RPR TITER (test code = 3500) NOT INDIC. TITER NOT INDIC. HIV 1/2 4TH GEN, RFLX [id number] 03:12:58* Test Item Value Reference Range Interpretation Comme nts HIV 1/2 4TH GEN, RFLX CONF ( test code = 3514) NON-REACTIVE NON-REACTIVE HEPATITIS PANEL, [id number] 03:12:58* Test Item Value Reference Range Interpretation Comme nts HEPATITIS A IgM (test code = 17958) NON-REACTIVE NON-REACTIVE HEPATITIS B CORE IgM (test code = 4644) NON-REACTIVE NON-REACTIVE HEPATITIS B SURF AG (test code = 2739) NON-REACTIVE NON-REACTIVE HEPATITIS C ANTIBODY (test code = 4675) NON-REACTIVE NON-REACTIVE INTERPRETATION HEPATITIS A: (test code = 2552) (NOTE) Hepatitis A serology shows no evidence of acute hepatitis A. INTERPRETATION HEPATITIS B: (test code = 16137) (NOTE) Hepatitis B serology shows no evidence of acute hepatitis B andno indication of exposure to hepatitis B virus in the previous miguel eight months. INTERPRETATION HEPATITIS C: (test code = 41214) (NOTE) Hepatitis C serology shows no evidence of exposure to hepatitisC virus at this time. It can take up to 12 months after exposure tothe hepatitis C virus for antibodies to become detectable in the blood in certain patients. PLACENTA THIRD [id number] 08:49:00 RUN DATE: 01/19/20 [facility] PAGE 1 RUN TIME: 1140 Specimen Inquiry RUN USER: INTERFACE --------- ---PATIENT: GERSON RAMIREZ LOC: [facility] U #: [id number] AGE/SX: ROOM: [facility] RE01/12/20REG DR: Demario Ritter MD : 98 BED: A DIS: 01/16/20 STATUS: DIS IN TLOC: -------- ---- SPEC #: [id number] RECD: 01/16/20 STATUS: SOUT REQ #: [id number] PRATIMA: 01/16/20- SUBM DR: Demario Ritter [facility] ENTERED: 01/16/20 SP TYPE: PLACIII OTHR DR: ORDERED: LEVEL V SURGICA CODES: [id number] - PLACENTA, NOS PROCEDURES: LEVEL V SURGICA (Incomplete) TISSUES: PLACENTA, NOS - PLACENTA CLINICAL HISTORY 19 year old, IUP @ 40.1 weeks, G1T1, section, gestational hypertension, chorioamnionitis, meconium (wpd) FINAL DIAGNOSIS Placenta, 40.1 weeks gestational age, section: - third trimester placenta, 686 gms (95th percentile) - acute chorioamnionitis (Stage 2, Grade 2) - acute umbilical cord vasculitis (Stage 2, Grade 2) - focal villous edema CPT code(s): 41536 [facility]/wpd GROSS DESCRIPTION The specimen was received in a container, labeled with the patient's name, unit number and designated "placenta". The following attributes are observed: Cord insertion: 3 cm from margin Cord length: 29 cm Number of vessels: 3 Cord color: Blue-mullins and green Other cord findings: None surface findings: Blue-green, wrinkled, glistening Vasculature: Displays unremarkable blood vasculature Membranes rupture site: At the margin Membrane color: Green-mullins Other membrane findings: Thickened and opaque The trimmed placental weight: 686 gm Disk measurement: 23 x 21 x 3.6 cm in greatest dimension Accessory lobes: None CONTINUED ON NEXT PAGE RUN DATE: 01/19/20 [facility] PAGE 2 RUN TIME: 1140 Specimen Inquiry RUN USER: INTERFACE SPEC #: [id number] PATIENT: GERSON RAMIREZ #[id number] (Continued) GROSS DESCRIPTION (Continued) Maternal surface: Lobulated and intact and contains focal pinpoint calcium deposits Parenchyma: Red, beefy, and spongy Parenchyma lesions: None Cassettes: A1 through A4 varun/rosa elena 01/16/20 Signed Jessica Hale MD 01/19/20 0849 ------- ----- END OF REPORT HGB [id number] 18:45:00* Test Item Value Reference Range Interpretation Comme nts HEMOGLOBIN (test code = HGB) 6.1 g/dL 10.7-13.9 LL RESULTS VERIFIED BY REPEAT ANALYSISRESULTS CALLED TO ALICIA CHANEL.READ BACK & CONFIRMED?Y .BY F.LAB.RV 01/15/20 1843. HEMATOCRIT (test code = HCT) 21.7 % 32.1-42.1 L HGB [id number] 08:10:00* Test Item Value Reference Range Interpretation Comme nts HEMOGLOBIN (test code = HGB) 6.2 g/dL 10.7-13.9 LL RESULTS CALLED T Marlene AdamesREAD BACK & CONFIRMED? Y.BY F.LAB. 01/14/20 0809.Results verified by repeat analysis HEMATOCRIT (test code = HCT) 22.4 % 32.1-42.1 L VENOUS BLOOD [id number] 17:20:00* Test Item Value Reference Range Interpretation Comme nts VENOUS BLOOD GAS PH (test co de = PHV) 7.249 7.31-7.41 L VENOUS BLOOD GAS PCO2 (test code = PCO2V) 37.1 mmHg VENOUS BLOOD GAS PO2 (test c ode = PO2V) 32.5 mmHg VBG HCO3 (test code = HCO3V) 15.9 meq/L VBG BASE EXCESS (test code = MAIN) -10.5 2.0 to +2.0 L VENOUS BLOOD GAS OS SAT. (te st code = O2SATV) 53.5 % VENOUS BLOOD GAS TYPE (test code = TYPEV) Venous VENOUS BLOOD GAS FIO2 (test code = FIO2V) 21.0 % PROTHROMBIN [id number] 08:51:00* Test Item Value Reference Range Interpretation Comme nts PROTHROMBIN TIME PATIENT (te st code = PTP) 11.2 secs 10.4-12.4 N IS PATIENT ON ANTICOAGULANTS ? NINTERNATIONAL NORMAL [id number] 08:51:00* Test Item Value Reference Range Interpretation Comme nts INTERNATIONAL NORMAL RATIO (test code = INR) 1.04 The INR is to be used only for monitoring oral anticoagulanttherapy. INDICATION INR VALUE 1. Prophylaxis including high risk surgery 2.0 - 2.52. Deep venous thrombosis. Pulmonary embolism. Atrial fibrillation or bioprosthetic heart valves 2.0 - 3.03. Mechanical heart valves or recurrent systemic embolism. 3.0 - 3.5 IS PATIENT ON ANTICOAGULANTS ? NTHROMBOPLASTIN TIME [id number] 08:51:00* Test Item Value Reference Range Interpretation Comme nts THROMBOPLASTIN TIME PARTIAL (test code = PTT) 25.6 secs 22-38 N IS PATIENT ON ANTICOAGULANTS ? NCBC W/AUTO [id number] 08:42:00* Test Item Value Reference Range Interpretation Comme nts WHITE BLOOD CELL (test code = WBC) 12.3 K/mm3 6.6-12.1 H Results verified by repeat analysis RED BLOOD CELL (test code = RBC) 3.86 M/mm3 3.45-5.01 N HEMOGLOBIN (test code = HGB) 8.7 g/dL 10.7-13.9 L HEMATOCRIT (test code = HCT) 30.3 % 32.1-42.1 L MEAN CELL VOLUME (test code = MCV) 79 fL 84.1-94.8 L MEAN CELL HGB (test code = MCH) 22.5 pg 27-35 L MEAN CELL HGB CONCETRATION (test code = MCHC) 28.7 gm/dL 32.2-34.1 L RED CELL DISTRIBUTION WIDTH (test code = RDW) 17.7 % 12.4-16.5 H PLATELET COUNT (test code = PLT) 234 K/mm3 133-385 N MEAN PLATELET VOLUME (test code = MPV) 11.6 fl 9.1-12.7 N MANUAL DIFF REQUIRED (test code = MDIFF) YES RBC MORPHOLOGY REQUIRED (test code = RBCM) ABNORMAL NORMAL PLATELET MORPHOLOGY REQUIRED (test code = PLTMR) NORMAL NORMAL WBC [id number] 08:42:00* Test Item Value Reference Range Interpretation Comme nts TOTAL CELLS COUNTED (test co de = TCC) 100 #CELLS SEGMENTED NEUTROPHILS (test code = SEG) 89 % 56.5-79.4 H LYMPHOCYTE (test code = LYMPH) 6 % 20-40 L MONOCYTE (test code = MON) 5 % 0-8 N POLYCHROMASIA (test code = POLC) 1+ HYPOCHROMIA (test code = HYPO) 1+ PLATELET ESTIMATE (test code = PLTEST) ADEQUATE ADEQ PLATELET MORPHOLOGY (test co de = PLTMORPH) NORMAL NORMAL CBC W/AUTO [id number] 08:41:00* Test Item Value Reference Range Interpretation Comme nts WHITE BLOOD CELL (test code = WBC) 12.3 K/mm3 6.6-12.1 H Results verified by repeat analysis RED BLOOD CELL (test code = RBC) 3.86 M/mm3 3.45-5.01 N HEMOGLOBIN (test code = HGB) 8.7 g/dL 10.7-13.9 L HEMATOCRIT (test code = HCT) 30.3 % 32.1-42.1 L MEAN CELL VOLUME (test code = MCV) 79 fL 84.1-94.8 L MEAN CELL HGB (test code = MCH) 22.5 pg 27-35 L MEAN CELL HGB CONCETRATION (test code = MCHC) 28.7 gm/dL 32.2-34.1 L RED CELL DISTRIBUTION WIDTH (test code = RDW) 17.7 % 12.4-16.5 H PLATELET COUNT (test code = PLT) 234 K/mm3 133-385 N MEAN PLATELET VOLUME (test code = MPV) 11.6 fl 9.1-12.7 N MANUAL DIFF REQUIRED (test code = MDIFF) YES RBC MORPHOLOGY REQUIRED (test code = RBCM) ABNORMAL NORMAL PLATELET MORPHOLOGY REQUIRED (test code = PLTMR) NORMAL NORMAL WBC [id number] 08:41:00* Test Item Value Reference Range Interpretation Comme nts SEGMENTED NEUTROPHILS (test code = SEG) % 56.5-79 .4 LYMPHOCYTE (test code = LYMPH) % 20-40 CBC W/AUTO [id number] 08:41:00* Test Item Value Reference Range Interpretation Comme nts WHITE BLOOD CELL (test code = WBC) 12.3 K/mm3 6.6-12.1 H Results verified by repeat analysis RED BLOOD CELL (test code = RBC) 3.86 M/mm3 3.45-5.01 N HEMOGLOBIN (test code = HGB) 8.7 g/dL 10.7-13.9 L HEMATOCRIT (test code = HCT) 30.3 % 32.1-42.1 L MEAN CELL VOLUME (test code = MCV) 79 fL 84.1-94.8 L MEAN CELL HGB (test code = MCH) 22.5 pg 27-35 L MEAN CELL HGB CONCETRATION (test code = MCHC) 28.7 gm/dL 32.2-34.1 L RED CELL DISTRIBUTION WIDTH (test code = RDW) 17.7 % 12.4-16.5 H PLATELET COUNT (test code = PLT) 234 K/mm3 133-385 N MEAN PLATELET VOLUME (test code = MPV) 11.6 fl 9.1-12.7 N MANUAL DIFF REQUIRED (test code = MDIFF) YES RBC MORPHOLOGY REQUIRED (test code = RBCM) ABNORMAL NORMAL PLATELET MORPHOLOGY REQUIRED (test code = PLTMR) NORMAL NORMAL WBC [id number] 08:41:00* Test Item Value Reference Range Interpretation Comme nts SEGMENTED NEUTROPHILS (test code = SEG) % 56.5-79 .4 LYMPHOCYTE (test code = LYMPH) % 20-40 LACTIC [id number] 08:14:00* Test Item Value Reference Range Interpretation Comme nts LACTIC ACID (test code = LACT) 1.8 MMOL/L 0.5-2.2 N Comments to Clinical Review Specialist: ALREADY CAMECOMPREHENSIVE METABOLIC [id number] 07:59:00* Test Item Value Reference Range Interpretation Comme nts SODIUM (test code = NA) 135 mEq/L 135-145 N POTASSIUM (test code = K) 3.9 mEq/L 3.5-5.0 N CHLORIDE (test code = CL) 101 mEq/L 100-115 N CARBON DIOXIDE (test code = CO2) 24 mEq/L 22-31 N ANION GAP (test code = GAP) 13.90 10-20 N GLUCOSE (test code = GLU) 84 mg/dL 65-110 N BLOOD UREA NITROGEN (test co de = BUN) 4 mg/dL 7-18 L GLOMERULAR FILTRATION RATE ( test code = GFR) 106 ml/min >60 N CREATININE (test code = CREAT) 0.7 mg/dL 0.5-1.0 N TOTAL PROTEIN (test code = PROT) 6.0 gm/dL 6.3-8.2 L ALBUMIN (test code = ALB) 2.7 gm/dL 3.4-4.8 L CALCIUM (test code = CA) 8.0 mg/dL 8.4-10.2 L BILIRUBIN TOTAL (test code = BILT) 0.5 mg/dL 0.2-1.0 N SGOT/AST (test code = AST) 14 units/L 15-37 L SGPT/ALT (test code = ALT) 15 units/L 12-78 ALKALINE PHOSPHATASE TOTAL ( test code = ALKP) 161 units/L 46-116 H URINALYSIS [id number] 17:16:00* Test Item Value Reference Range Interpretation Comme nts UA COLOR (test code = COLU) YELLOW YELLOW UA APPEARANCE (test code = APPU) HAZY CLEAR UA GLUCOSE DIPSTICK (test co de = DGLUU) NEGATIVE NEGATIVE UA BILIRUBIN DIPSTICK (test code = BILU) NEGATIVE NEGATIVE UA KETONE DIPSTICK (test cod e = KETU) NEGATIVE NEGATIVE UA SPECIFIC GRAVITY (test co de = SGU) 1.020 1.001-1.035 N UA BLOOD DIPSTICK (test code = FUAD) NEG NEGATIVE UA PH DIPSTICK (test code = THAI) 6.0 5-9 UA PROTEIN DIPSTICK (test co de = PROU) NEGATIVE NEGATIVE UA UROBILINIOGEN DIPSTICK (t est code = URO) 0.2 EU/dL <=1.0 UA NITRITE DIPSTICK (test co de = LAKHWINDER) NEGATIVE NEGATIVE UA LEUKOCYTE ESTERASE DIPSTI CK (test code = LEUU) NEG NEGATIVE AG HEPATITIS B [id number] 16:18:00* Test Item Value Reference Range Interpretation Comme nts AG HEPATITIS B SURFACE (test code = HBSAG) NONREACTIVE NONREACTIVE IS CONSENT FORM SIGNED FOR HIV TESTING? YAB HEPATITIS C [id number] 16:18:00* Test Item Value Reference Range Interpretation Comme nts AB HEPATITIS C (test code = HCVAB) NONREACTIVE NONREACTIVE SIGNAL TO CUTOFF (test code = CUTOFF) 0.21 <0.80 N IS CONSENT FORM SIGNED FOR HIV TESTING? YAB [id number] 16:18:00* Test Item Value Reference Range Interpretation Comme nts AB TREPONEMA (test code = TREPAB) NONREACTIVE NONREACTIVE IS CONSENT FORM SIGNED FOR HIV TESTING? YAB HIV 1 16:18:00* Test Item Value Reference Range Interpretation Comme nts AB HIV 1 2 (test code = SBN15EI) NONREACTIVE NONREACTIVE Done by Siemens Setgoaur 4th Gen HIV Ag/Ab Combo Screen IS CONSENT FORM SIGNED FOR HIV TESTING? YCOVID 19 Asymptomatic IH [id number] 13:35:00* Test Item Value Reference Range Interpretation Comme nts COVID 19 Asymptomatic IH AG (test code = COVNONPUIAG) NEGATIVE NEGATIVE This test has be en authorized only for the detection ofproteins from SARS-CoV-2, not for any other viruses orpathogens. Negative results should be treated as presumptive andconfirmed with a molecular assay, if necessary for patientmanagement. Negative results do not rule out COVID-19 andshould not be used as the sole basis for treatment orpatient management decisions, including infection controldecisions. Negative results should be considered in thecontext of a patient's recent exposures, history and thepresence of clinical signs and symptoms consistent withCOVID-19. This test has not been FDA cleared or approved; the test hasbeen authorized by FDA under an Emergency Use Authorization(EUA) for use by laboratories certified under the CLIA thatmeet the requirements to perform moderate, high or waivedcomplexity tests. This test is authorized for use at thePoint of Care (POC), i.e., in patient care settingsoperating under a CLIA Certificate of Waiver, Certificate ofCompliance, or Certificate of Accreditation. This test is only authorized for the duration of thedeclaration that circumstances exist justifying theauthorization of emergency use of in vitro diagnostic testsfor detection and/or diagnosis of COVID-19 under Enawdkm468(b)(1) of the Act, 21 U.S.C. 360bbb-3(b)(1), unless theauthorization is terminated or revoked sooner. AG HEPATITIS B [id number] 13:11:00* Test Item Value Reference Range Interpretation Comme nts AG HEPATITIS B SURFACE (test code = HBSAG) NONREACTIVE NONREACTIVE IS CONSENT FORM SIGNED FOR HIV TESTING? RAFYB HEPATITIS C [id number] 13:11:00* Test Item Value Reference Range Interpretation Comme nts AB HEPATITIS C (test code = HCVAB) NONREACTIVE SIGNAL TO CUTOFF (test code = CUTOFF) <0.80 IS CONSENT FORM SIGNED FOR HIV TESTING? YAB [id number] 13:11:00* Test Item Value Reference Range Interpretation Comme nts AB TREPONEMA (test code = TREPAB) NONREACTIVE NONREACTIVE IS CONSENT FORM SIGNED FOR HIV TESTING? YAB HIV 1 13:11:00* Test Item Value Reference Range Interpretation Comme nts AB HIV 1 2 (test code = YKW98NN) NONREACTIVE IS CONSENT FORM SIGNED FOR HIV TESTING? YPIH [id number] 12:52:00* Test Item Value Reference Range Interpretation Comme nts CREATININE (test code = CREAT) 0.7 mg/dL 0.5-1.0 N SGOT/AST (test code = AST) 14 units/L 15-37 L SGPT/ALT (test code = ALT) <6 units/L 12-78 L LACTIC DEHYDROGENASE(LDH) (t est code = LDH) 213 units/L 81-234 N : *CBC W/AUTO [id number] 12:27:00* Test Item Value Reference Range Interpretation Comme nts WHITE BLOOD CELL (test code = WBC) 8.2 K/mm3 6.6-12.1 N RED BLOOD CELL (test code = RBC) 3.90 M/mm3 3.45-5.01 N HEMOGLOBIN (test code = HGB) 8.6 g/dL 10.7-13.9 L HEMATOCRIT (test code = HCT) 30.1 % 32.1-42.1 L MEAN CELL VOLUME (test code = MCV) 77 fL 84.1-94.8 L MEAN CELL HGB (test code = MCH) 22.1 pg 27-35 L MEAN CELL HGB CONCETRATION ( test code = MCHC) 28.6 gm/dL 32.2-34.1 L RED CELL DISTRIBUTION WIDTH (test code = RDW) 17.9 % 12.4-16.5 H PLATELET COUNT (test code = PLT) 276 K/mm3 133-385 N MEAN PLATELET VOLUME (test c ode = MPV) 11.1 fl 9.1-12.7 N NEUTROPHIL % (test code = NT%) 73.8 % 56.5-79.4 N LYMPHOCYTE % (test code = LY%) 19.1 % 14.3-34.3 N MONOCYTE % (test code = MO%) 5.0 % 5.1-10.4 L EOSINOPHIL % (test code = EO%) 0.4 % 0.1-3.0 N BASOPHIL % (test code = BA%) 0.4 % 0.1-1.0 N NEUTROPHIL # (test code = NT#) 6.1 K/mm3 LYMPHOCYTE # (test code = LY#) 1.6 K/mm3 MONOCYTE # (test code = MO#) 0.4 K/mm3 EOSINOPHIL # (test code = EO#) 0.03 K/mm3 BASOPHIL # (test code = BA#) 0.0 K/mm3 RBC MORPHOLOGY REQUIRED (tomasa t code = RBCM) NORMAL NORMAL PLATELET MORPHOLOGY REQUIRED (test code = PLTMR) NORMAL NORMAL Notes Date/Time Note Provider Source 2023-02-11 15:51:13 5242-70-96E50:51:13F ormatting of this note might be different from the original.Informed pt the medication and test results she was seeing regarding Gc/chlamydia were from 2019, not her visit from 02/06/2023. Pt verbalized understanding. 71520-8Pbxoozqir encounter ZwjgKA2262-12-90H22:52:18Telephone encounter NoteTXT1.2.840.003397.1.13.104.2.7 .2.112497|[id number] for patient [id number] M Giusti RNUTMBUT - [address] Ib[id number] 83ZEGJLBOQCINONAUEDWBOZQ7319-88-03 T15:52:181.2.840.676802.1.72.3.15| 1.2.840.645083.1.13.104.2.7.2.7278 [id number] Marika Rodriguez RN [facility] 2023-02-11 15:40:36 0708-30-59W36:40:36F ormatting of this note might be different from the original.Pt want to go over meds and labs she seeing std med and was just seen for covid 37458-2Snxkpgvsf encounter IwgyMB1978-24-35U26:42:13Telephone encounter NoteTXT1.2.840.440857.1.13.104.2.7 .2.769395|[id number] for patient [id number] [address] LvsvZnyjlxalgPunsblszyOXTR64857088 05KIEEAPRFDXQCDEETJHVTYI5847-45-04 T15:42:131.2.840.593142.1.72.3.15| 1.2.840.064932.1.13.104.2.7.2.7278 [id number] Trinidadodin Hightower [facility] 2020-03-07 21:11:00 BVkrgyuieeh786682286 204-99-13S36:1 1:[id number] [facility] [address] PATIENT NAME: GERSON RAMIREZ ADMIT DATE: 01/12/20ACCOUNT NO: [id number] ROOM NO: .4422 AGE: 19 SEX: F ADMITTING PHYSICIAN: Demario Ritter MD ATTENDING PHYSICIAN: Demario Ritter MD ADMISSION DATE: 01/12/2020DISCHARGE DATE: 01/16/2020 ADMISSION DIAGNOSES:1. Term .2. -induced hypertension. ADDITIONAL DIAGNOSIS: Arrest of descent. PROCEDURE PERFORMED: Primary low transverse delivery. DISPOSITION: The patient discharged home in good condition. DISCHARGE MEDICATIONS: Include Poca, Motrin, and multivitamin. SUMMARY OF HOSPITAL COURSE: The patient was admitted at 40 weeks' gestationwith elevated blood pressures and headache. She was found to be in early labor;however, underwent Pitocin augmentation, progressed to complete, ____, +1 andhad an attempted trial of forceps, however, had arrest of descent withoutfurther use of forceps and underwent primary as previously dictated. During her labor course, she developed chorioamnionitis and sepsis protocol wasinitiated. Postoperatively, the patient did well. She defervesced and vitalsigns were stabilized. Her blood pressure normalized. Hemoglobin andhematocrit showed an acute drop with hemoglobin 6.7; however, it was stable andthe patient was ambulating without difficulty and without symptoms of anemia. She tolerated regular diet, had good pain control. By postoperative day #3, thepatient was meeting all postoperative goals. She was discharged home in goodcondition. DISCHARGE INSTRUCTIONS: Discharge medications, wound care instructions werediscussed with the patient and family. She was scheduled for followup in theoffice in 2 weeks for incision check. Dictated By: Demario Ritter MD WT: DS:F.HIM/SHEGR/NTSDD: 03/07/2020 21:11:21DT: 03/08/2020 01:27:57Conf#: [id number]/DID#: [id number] Authenticated by Demario Ritter MD On 03/09/2020 12:25:50 PM PATIENT NAME: LOLY GERSON HIGHTOWER at 1226 PATIENT NAME: LOLY GERSON HIGHTOWER wnweqyr7155-69-40R60:27:00F.LHF608 91488-7930YENnrotmwvn for patient uyayMGLAYCAZUBVQAU7701-24-74C37:26 :30 [facility] 2020-01-16 07:54:00 [id number] 544-26-42E70:5 4:00 [facility] ([facility])OB Postpart Progr NoteREPORT#:[id number] REPORT STATUS: SignedDATE:01/16/20 TIME: 0754 PATIENT: LOLY HIGHTOWERGERSON UNIT #: [id number]#: [id number] [address] AGE: 19 SEX: F ATTEND: Demario Ritter MDADM AUTHOR: Demario Ritter MD * ALL edits or amendments must be made on the electronic/computer document * Subjective SubjectiveStatus/Day: post operative (d3)Patient reports: Patient reports: Yes no complaints, Yes pain management effective, Yes tolerating po well Objective Nursing Documentation ReviewNursing Data:The data set between the solid lines has been imported from nursing documentation. Any exceptions have been noted below under Provider comments. Feeding preference: Provider comments on imported nursing data: [] GeneralVS:Vital Signs: Date Time Temp Pulse Resp B/P B/P Pulse O2 O2 Flow FiO2 Mean Ox Delivery Rate 01/15 0422 97.8 98 18 121/81 01/15 0032 98.4 91 18 116/74 01/14 1650 98.5 120 18 123/81 01/14 1430 99.1 123 20 120/66 100 01/14 1150 122 01/14 1150 99.1 20 128/71 97 01/14 0830 98.2 108 18 116/79 99 Patient Weight Weight (lb): 238Weight (oz): Weight (kg): 107.955 Physical ExamNeuro: Exam: alert, oriented z2Fxsrnaf: soft, no abnormal tendernessIncision site: well approximated edges, dry, no drainage, no inflammationUterus: firm, non-tender ResultFindings/Data:Laboratory Tests: 01/14 1831 Hematology Hgb (10.7 - 13.9 g/dL) 6.1 *L Hct (32.1 - 42.1 %) 21.7 L Diagnosis, Assessment Plan Diagnosis, Assessment PlanAssessment: nml progress, acute blood loss anemia, chronic blood lossanemiaPlan: routine care, discharge today, option of transfusion d/w pt, asx, ambulating without difficulty, and declines at 0755 RPT #:[id number] OF REPORT PRProgress Snwf1922-93-59N02:54:00F.PRKJ06875 811-0050AVAvailable for patient trztJRBDHFUTLWZAVI6151-44-81H06:56 :23 [facility] 2020-01-15 20:59:00 [id number] 261-50-03Z64:5 9:00 [facility] ([facility])Clinical NoteREPORT#:[id number] REPORT STATUS: SignedDATE:01/15/20 TIME: 2058 PATIENT: GERSON RAMIREZ UNIT #: [id number]#: [id number] [address] [birth year] AGE: 19 SEX: F ATTEND: Demario Ritter [facility] AUTHOR: Yusra Wong MD * ALL edits or amendments must be made on the electronic/computer document * Clinical NoteNote:Brief interval note S: patient delivered by c/s on 01/12. RN called letting me know of Hct. Hct dropped from 8.7/30.3 to 6.2/22.4 yesterday morning, now 6.1/21.7. I spoke with RN and patient- she is asymptomatic, been eating, walking, urinating, and visiting baby in NICU. VSS except HR 120s. HR between 100-120s since delivery. Most recent vitals HR 108, BP 126/76, T 98.6, no bleeding. Discussed with patient. If she becomes symptomatic can consider blood transfusion. She will monitor symptoms. at 2104 RPT #:[id number] OF REPORT CLClinical cdzb9115-00-77P60:59:00F.JVPC03336 810-0328AVAvailable for patient ixcbKEIBKQRSHDELRP4154-54-94A16:05 :02 [facility] 2020-01-15 08:12:00 [id number] 440-46-86L12:1 2:00 [facility] ([facility])OB Postpart Progr NoteREPORT#:[id number] REPORT STATUS: SignedDATE:01/15/20 TIME: 0812 PATIENT: GERSON RAMIREZ UNIT #: [id number]#: [id number] [address] AGE: 19 SEX: F ATTEND: Demario Ritter MDADM AUTHOR: Demario Ritter MD * ALL edits or amendments must be made on the electronic/computer document * Subjective SubjectiveStatus/Day: post operative (d2)Patient reports: Patient reports: Yes no complaints, Yes pain management effective, Yes tolerating po well Objective Nursing Documentation ReviewNursing Data:The data set between the solid lines has been imported from nursing documentation. Any exceptions have been noted below under Provider comments. Feeding preference: Provider comments on imported nursing data: [] GeneralVS:Vital Signs: Date Time Temp Pulse Resp B/P B/P Pulse O2 O2 Flow FiO2 Mean Ox Delivery Rate 01/14 0400 98.6 106 16 108/72 01/14 0011 98.3 100 16 131/78 01/13 1954 98.4 125 20 112/69 01/13 1625 97.5 18 113/71 01/13 1230 97.9 109 20 110/69 Patient Weight Weight (lb): 238Weight (oz): Weight (kg): 107.955 Physical ExamNeuro: Exam: alert, oriented l0Ooesznj: soft, no abnormal tendernessIncision site: well approximated edges, dry, no drainage, no inflammationUterus: firm, non-tender Diagnosis, Assessment Plan Diagnosis, Assessment PlanAssessment: nml progress, acute blood loss anemia, chronic blood lossanemiaPlan: routine care, discharge tomorrow at 0813 RPT #:[id number] OF REPORT PRProgress Cnnj4091-20-85C15:12:00F.AIMJ62557 810-0065AVAvailable for patient upbmKUHCOHXUMYMIED6660-87-76W30:13 :31 [facility] 2020-01-14 11:41:00 [id number] 526-20-65W18:4 1:00 [facility] ([facility])OB Postpart Progr NoteREPORT#:[id number] REPORT STATUS: SignedDATE:01/14/20 TIME: 1141 PATIENT: GERSON RAMIREZ UNIT #: [id number]#: [id number] [address] [birth year] AGE: 19 SEX: F ATTEND: Demario Ritter [facility] AUTHOR: Padma Arguelles MD * ALL edits or amendments must be made on the electronic/computer document * Subjective SubjectiveStatus/day: post , post operative (d1)Patient reports: Patient reports: Yes: normal lochia, pain management effective, tolerating po well, voiding well, tolerating ambulation. No: complaints. Objective Nursing Documentation ReviewNursing data:The data set between the solid lines has been imported from nursing documentation. Any exceptions have been noted below under Provider comments. Feeding preference: Provider comments on imported nursing data: [] GeneralVS:Vital SignsDate Temp Pulse Resp B/P B/P Mean Pulse Ox IyU705/-01/13 97.9-100.3 108-137 11-28 86-148/52-7 66.0-101.0 100 9 Last Documented: Result Date Time B/P 99/64 01/14 808 Temp 97.9 01/14 808 Pulse 108 01/14 808 Resp 20 01/14 808 B/P Mean 78.0 01/13 2000 Pulse Ox 100 01/13 2000 Patient Weight Weight (lb): 238Weight (oz): Weight (kg): 107.955 Physical ExamNeuro: Exam: alert, oriented p1Vbnxdeu: soft, no abnormal tendernessUterus: involution appropriate, non-tenderFundus: non-tenderLochia: normalLower extremities: Edema: trace ResultResults: no new labs, labs reviewed, vital signs stable Diagnosis, Assessment Plan Diagnosis, Assessment PlanAssessment: nml progress, acute blood loss anemia, chronic blood lossanemiaPlan: routine carePlan discussed with: patient at 1143 RPT #:[id number] OF REPORT PRProgress Acpj0599-99-48I27:41:00F.QPIH57154 809-0180AVAvailable for patient xiikXWLMHGNGXWKRJS3063-48-04L90:44 :06 [facility] 2020-01-13 17:35:00 JNnppcubnxl340693417 690-41-44Y93:3 5:00 [facility] ([facility])OB Delivery NoteREPORT#:[id number] REPORT STATUS: SignedDATE:01/13/20 TIME: 0441 PATIENT: GERSON RAMIREZ UNIT #: [id number]#: [id number] [address] [birth year] AGE: 19 SEX: F ATTEND: Demario Ritter [facility] AUTHOR: Demario Ritter MD * ALL edits or amendments must be made on the electronic/computer document * OB Delivery Nursing Documentation ReviewNursing data:The data set between the solid lines has been imported from nursing documentation. Any exceptions have been noted below under Provider comments. ROM date: 01/12/20 ROM time: 1615Membranes rupture method: AROMAmniotic fluid color: ClearAmniotic fluid amount: EGA (weeks/days): 40.0EGA at admit (weeks): EGA at delivery (weeks): 40Steroids prior to arrival: Antibiotic prophylaxis given: NoNewborn evaluation at delivery: Delivery date A: 01/13/20 Delivery time infant A: 1706Birthweight (gm) A: Weight (lb) A: Weight (oz) A: Gender infant A: FemaleApgar 1 minute A: 5 minutes A: 10 minutes A: Cord pH obtained A: Vacuum time A: Vacuum # pulls A: Vacuum # popoffs A: QBL at delivery: Provider comments on imported nursing data: [] Pre-deliveryNewborn evaluation at delivery: teamAdmission EGA (wks/days): 40 weeks Baby A InformationBaby A information Delivery date: 01/13/20 Delivery time: 1706 status: live born Wt of baby (lbs/oz): 8/6 Gender: female 1 minute: 8 5 minutes: 9 Presentation: vertexABG details Baby A Cord blood gases: collectedNuchal cord Baby A Nuchal cord: no DeliveryCesarean section Primary indication: arrest of descent, chorio Priority: urgent Antibiotic prior to incision: more than 1 dose )(SCDs applied activated: Yes Uterine incision: low transverse Consent: indication discussed, questions answered, pt consent to op delivery Mother's condition: mother stable Infant's condition: to NICU Op/Inv Proc Note - Brief)( Procedure(s) performed: prim low transverse c/s)( Primary Surgeon:Layne Ritter)( Engineering Leader(s):Juni Hernandez)( Pre-procedure diagnosis:40 wks, primip, GHTN, early labor, choirio, arrest of descent)( Post-procedure diagnosis:same)( Technique/Procedure:LTCSAnesthesia : epidural anesthesia)( Estimated blood loss (ml): 700)( Specimen removed/altered: placenta)( Complications: none)( Finding(s):nl ut/ov/tubes.hemostatic.counts correct. Blood Loss/DetailsBlood loss at delivery: <1000 ml, no more than expected at 1737 RPT #:[id number] OF REPORT OBObstetric cxez5014-81-47Q66:35:00F.CYQY66356 808-0307AVAvailable for patient fxbgACQWYSSISEXKFH2612-27-17I42:37 :43 [facility] 2020-01-13 16:29:00 [id number] 089-37-02H83:2 9:00 [facility] ([facility])Clinical NoteREPORT#:[id number] REPORT STATUS: SignedDATE:01/13/20 TIME: 1629 PATIENT: GERSON RAMIREZ UNIT #: [id number]#: [id number] [facility] AGE: 19 SEX: F ATTEND: Demario Ritter [facility] AUTHOR: Demario Ritter MD * ALL edits or amendments must be made on the electronic/computer document * Clinical NoteNote:pushing x3 hrs. options of FAVD vs C/S d/w pt, agreed to trial of forceps. attempt made at FAVD, forceps applied and traction applied with maternal expulsive efforts, but no descent. at this time rec for C/S and pt agrees.will proceed for C/S TEODORA. at 1630 RPT #:[id number] OF REPORT CLClinical cnrd3150-39-96V91:29:00F.HYMY33398 808-0292AVAvailable for patient nzykGAYVQKKPKLPHFW8698-00-03N67:31 :02 [facility] 2020-01-13 14:34:00 [id number] 104-45-49Z59:3 4:00 [facility] ([facility])Clinical NoteREPORT#:[id number] REPORT STATUS: SignedDATE:01/13/20 TIME: 1434 PATIENT: GERSON RAMIREZ UNIT #: [id number]#: [id number] ROOM/BED: [facility]-ADOB: [birth year] AGE: 19 SEX: F ATTEND: Demario Ritter [facility] AUTHOR: Demario Ritter MD * ALL edits or amendments must be made on the electronic/computer document * Clinical NoteNote:C/C/+1.pushing, not much progress.FHT 170, still with good variability.abx running.will cont pushing, hope for . at 1434 RPT #:[id number] OF REPORT CLClinical hxus3215-69-60M15:34:00F.PCCL31792 808-0248AVAvailable for patient jnoyVSYDUPFSKVGSUR5125-40-21U44:34 :48 [facility] 2020-01-13 11:10:00 YCanigiygrt474090581 069-90-59G18:1 0:00 [facility] ([facility])Clinical NoteREPORT#:[id number] REPORT STATUS: SignedDATE:01/13/20 TIME: 1110 PATIENT: GERSON RAMIREZ UNIT #: [id number]#: [id number] ROOM/BED: [facility]-ADOB: [birth year] AGE: 19 SEX: F ATTEND: Demario Ritter [facility] AUTHOR: Alona Hernandez MD * ALL edits or amendments must be made on the electronic/computer document * Clinical NoteNote:cx 9/c/+1 good change FHT good variablity pos acele fht 170' but pt still febrile 100.5 will give motrin since close to delivery at 1112 RPT #:[id number] OF REPORT CLClinical rjfz0439-20-87J19:10:00F.DOSF13752 808-0187AVAvailable for patient wtciIIASRQHDEGBTOM4619-71-79R13:12 :31 [facility] 2020-01-13 09:52:00 [id number] 223-21-49Z27:5 2:00 [facility])Clinical NoteREPORT#:[id number] REPORT STATUS: SignedDATE:01/13/20 TIME: 951 PATIENT: GERSON RAMIREZ UNIT #: [id number]#: [id number] [facility] AGE: 19 SEX: F ATTEND: Demario Ritter [facility] AUTHOR: Alona Hernandez MD * ALL edits or amendments must be made on the electronic/computer document * Clinical NoteNote:cx 7/c/0 good change cont pitocin at 0952 RPT #:[id number] OF REPORT CLClinical ocmq6510-87-57L79:52:00F.JPIZ62099 808-0128AVAvailable for patient jfpwYFSGOVTDPBGKYW0618-64-60M33:53 :08 [facility] 2020-01-13 08:49:00 [id number] 725-38-65M51:4 9:00 [facility])Clinical NoteREPORT#:[id number] REPORT STATUS: SignedDATE:01/13/20 TIME: 848 PATIENT: GERSON RAMIREZ UNIT #: [id number]#: [id number] ROOM/BED: [facility]-ADOB: [birth year] AGE: 19 SEX: F ATTEND: Demario Ritter [facility] AUTHOR: Constance Monahan MD * ALL edits or amendments must be made on the electronic/computer document * Clinical NoteNote:19 y/o G1 @ 40w1d admitted for IOL due to GHTN, now with chorioamnionitis. Comfortable with epidural. No PIH s/sx Exam: AAO x 4Pulm: unlabored breathingAbd: soft, gravid, NTTPGU: 5/80/-2 FHTs Cat 2 - tachycardia, +moderate variabilityToco q1-3min IOL- SVE /-2@0630- AROM @ 1630, clear, IUPC placed- on pitocin, continue titration to MVU>200- GBS neg Chorio-based on maternal fever, and maternal tachycardia-last fever 101 @ 0845-sepsis protocol initiated, s/p Unasyn x 1; now on amp/gent and tylenol PO GHTN- BPs normal to mild ranging- pt asx Fetus- racquel 8# slow progression of labor and with chorioamnionitis, will continue pitocin titration and reevaluate for surgical delivery. at 0854 RPT #:[id number] OF REPORT CLClinical xenb2054-77-51M62:49:00F.SHPD80117 808-0088AVAvailable for patient msopXHWYJRKOMOOUMQ8579-00-86X61:54 :46 [facility] 2020-01-13 08:05:00 [id number] 042-43-24S67:0 5:00 [facility])Clinical NoteREPORT#:[id number] REPORT STATUS: SignedDATE:01/13/20 TIME: 804 PATIENT: GERSON RAMIREZ UNIT #: [id number]#: [id number] ROOM/BED: [facility]-ADOB: [birth year] AGE: 19 SEX: F ATTEND: Demario Ritter [facility] AUTHOR: Shwetha Alston MD * ALL edits or amendments must be made on the electronic/computer document * Clinical NoteNote:Responded to pt room for code sepsis Pt is 19 yo G1 at 40 1/7 weeks admitted for induction due to PIH at term. Pt currently reports feeling chilled. No chest pain, cough. No recent GI issues or dysuria. Pt comfortable with epidural and not reporting any abdominal pain. Temp-100.5 128/74 111NADLungs-cta BCV-tachy with systolic ejection murmurAbd-obese/g/sExt- no cords; 1+ edemaIV site- no erythema FHT-170 normal variability; + accels; mild variable notedtoco- q 2-5 40 1/7 weeks with sepsis based on temp and tachycardia with most likely etiologyas chorio. Sepsis bundle initiated. Primary OB has ordered NS 500 ml and amp andgent. Will await labs to determine need for further fluid bolus as per bundle FHT with tachycardia as response to maternal temp but otherwise with normal variability at 0811 RPT #:[id number] OF REPORT CLClinical katt1247-54-81Q51:05:00F.WIUE03450 808-0042AVAvailable for patient qbgmNTIUQZGQZNWMDV4406-07-18X73:11 :45 [facility] 2020-01-13 03:41:00 [id number] 496-48-73K60:4 1:00 [facility])Clinical NoteREPORT#:[id number] REPORT STATUS: SignedDATE:01/13/20 TIME: 0341 PATIENT: GERSON RAMIREZ UNIT #: [id number]#: [id number] ROOM/BED: [facility]-ADOB: [birth year] AGE: 19 SEX: F ATTEND: Demario Ritter [facility] AUTHOR: Constance Monahan MD * ALL edits or amendments must be made on the electronic/computer document * Clinical NoteNote:19 y/o G1 @ 40w1d admitted for IOL due to GHTN. Comfortable with epidural. No PIH s/sx Exam: AAO x 4Pulm: unlabored breathingAbd: soft, gravid, NTTPGU: FHTs Cat 1Toco q1min IOL- SVE /-3@0330- AROM @ 1630, clear, IUPC placed- on pitocin, MVU>200 x 3h- GBS neg- continue pitocin titration GHTN- BPs normal to mild ranging- pt asx Fetus- racquel 8# at 0348 RPT #:[id number] OF REPORT CLClinical ruxv5134-24-99Y67:41:00F.UMZM16175 808-0012AVAvailable for patient lissIHVXBHQTVDVTZY5549-63-47R50:48 :21 [facility] 2020-01-12 16:22:00 [id number] 070-16-26X22:2 2:00 [facility])Clinical NoteREPORT#:[id number] REPORT STATUS: SignedDATE:01/12/20 TIME: 1622 PATIENT: GERSON RAMIREZ UNIT #: [id number]#: [id number] ROOM/BED: [facility]-ADOB: [birth year] AGE: 19 SEX: F ATTEND: Demario Ritter AUTHOR: Demario Ritter MD * ALL edits or amendments must be made on the electronic/computer document * Clinical NoteNote:cvx 3/50/-2. AROM clear, IUPC placed.FHT 130s, Cat I.labs wnl.cont pit, antic . at 1622 RPT #:[id number] OF REPORT CLClinical oppc3140-99-18U94:22:00F.MYBE26265 807-0312AVAvailable for patient twpfKVIVGGDJEKTPNF6873-46-48W44:22 :57 [facility] 2020-01-12 11:50:00 [id number] 266-54-56Y33:5 0:00 [facility])OB Admission / H PREPORT#:[id number] REPORT STATUS: SignedDATE:01/12/20 TIME: 1150 PATIENT: GERSON RAMIREZ UNIT #: [id number]#: [id number] ROOM/BED: [facility]-ADOB: [birth year] AGE: 19 SEX: F ATTEND: Demario Ritter AUTHOR: Demario Ritter MD * ALL edits or amendments must be made on the electronic/computer document * OB Admission H P HxChief complaint: elevated blood pressure, uterine contractions, headacheHPI:Pt seen in office this AM at 40 wks, c/o GAVIN off and on for past week. feeling some ctx, no VB/LOF.BP elevated in office.good FM. history: : 1Current : EDC: 01/12/20 Admission EGA (wks/days): 40 weeksLabs: Blood type: O Rh: positive Rubella: immune Hepatitis B: negative HIV: negative STD: negative Syphilis: currently negative GBS: negativeProcedures: ultrasound, genetic testing, non stress testPast medical history: denies PMHPast surgical history: eyeSocial history: no alcohol use, no tobacco use, no drug use Objective GeneralVS:Patient Weight Weight (lb): Weight (oz): Weight (kg): Physical ExamHEENT: normocephalic w/o injuryNeuro: Exam: alert, oriented x3Umtbyit: gravid, soft, no abnormal tendernessUterine activity: Monitor: toco Frequency (description): regular Frequency (minutes): 2Pelvic exam: Pelvis clinically adequate: yes, inlet appears appropriate, pubic bone configappropr, no midpelvic contraction Vulvar lesions: none, no evidence herpetic les, no evidence of other STD Vagina: normal, non-septated, w/o apparent lesionsCervical/ exam: Dilatation (cm): 3 Effacement (%): 50 Est wt (gms): 3500 Suspected macrosomia: No Suspected > 5000 grams: Yes station: - 2 presentation: cephalicMembranes: Membranes: IntactBaby A: Baby A baseline: 130 bpm Baby A variability: moderate 6-25 bpm Baby A accelerations: 15 X 15 Baby A decelerations: none Baby A FHR category: category 1 Diagnosis, Assessment Plan Diagnosis, Assessment PlanFree Text A P:40 wks, elevated BPs, GAVIN, ctx.check PIH labs, mag if develops severe features.pit augmentation if needed.antic . at 1155 RPT #:[id number] OF REPORT HPHistory and physical [id number].PD [id number] for patient [id number] :16 HCA[facility]
--- NOTE | 2023-05-20 18:03 | EDPHYS ---
Physician Documentation [facility] Name: Adriana Hightower Age: 22 yrs Sex: Female : 2000 Arrival Date: 05/20/2023 Time: 17:20 Bed IW7 Private MD: ED Physician Mandeep Kuo HPI: 05/20 18:04 This 22 yrs old Female presents to ER via Ambulatory with complaints of Insect ec2 Bite. 18:04 Patient arrives today for evaluation of a skin lesion to the left buttock. States that ec2 she was bitten by an insect which she believes is a spider, states that she been having drainage at the area as well as pain with sitting down. Patient states that the symptoms started 4 days ago. Patient reports no fevers or chills, no nausea or vomiting. States improvement in symptoms with the ibuprofen.. Historical: - Allergies: 17:59 No Known Allergies; nj1 - PMHx: 17:59 None; nj1 - PSHx: 17:59 section; nj1 - Immunization history:: Client reports having NOT received the Covid vaccine. - Social history:: Smoking status: Patient denies any tobacco usage or history of. ROS: 18:04 Constitutional: as per hpi ec2 Exam: 18:04 Constitutional: GEN: NAD Head: atraumatic Eyes: EOMI Ears: External ears are ec2 normal. CV: regular rate LUNGS: no respiratory distress ABD: non-distended : Performed under nurse supervision, melvina, left buttock with erythema, warmth, no fluctuance appreciated. SKIN: no evidence of rashes MSK: no evidence of trauma NEURO: moves all extremities equally Vital Signs: 17:56 BP 141 / 94; Pulse 100; Resp 16; Temp 99.5(O); Pulse Ox 100% on R/A; Weight 90.72 kg; nj1 Height 5 ft. 3 in. ; Pain 8/10; 17:56 Body Mass Index 35.43 (90.72 kg, 160.02 cm) nj1 17:56 Pain Scale: Adult nj MDM: 17:55 Patient medically screened. ec2 17:55 Data reviewed: vital signs. ED course: Patient arrives today due to concern for a bug ec2 bite as well as pain in the buttock. Examination remarkable for skin findings as noted above. Will treat the patient for cellulitis, considered abscess however does not appear like an abscess on examination. Will start her on clindamycin. Otherwise patient without systemic signs symptoms and reassuring vital signs, will defer lab work.. Administered Medications: 18:11 Drug: Clindamycin PO 450 mg PO once Route: PO; nj1 Disposition Summary: 05/20/23 18:03 Discharge Ordered Notes: Location: Home ec2 Condition: Stable ec2 Diagnosis - Cellulitis of buttock ec2 Followup: ec2 - With: Private Physician - When: - Reason: Recheck today's complaints Discharge Instructions: - Discharge Summary Sheet ec2 - Cellulitis, Adult ec2 Forms: - Medication Reconciliation Form ec2 - Thank You Letter ec2 - Antibiotic Education ec2 - Prescription Opioid Use ec2 - Patient Portal Instructions ec2 - Leadership Thank You Letter ec2 Prescriptions: - Clindamycin HCl 150 mg Oral capsule - take 3 capsule ORAL route every 8 hours for 7 days; 63 capsule; Refills: 0, ec2 Product Selection Permitted Signatures: Melvina Prado RN RN nj1 Mandeep Kuo MD MD ec2 Corrections: (The following items were deleted from the chart) 18:06 18:03 Patient medically screened. ec2 ec2
--- NOTE | 2023-05-20 18:03 | ER ---
Nurse's Notes [facility] Name: Adriana Hightower Age: 22 yrs Sex: Female : 2000 Arrival Date: 05/20/2023 Time: 17:20 Bed IW7 Private MD: Diagnosis: Cellulitis of buttock Presentation: 05/20 17:56 Chief complaint: Patient states: Spider bite Wednesday, lesion on left buttock. Denies nj1 nausea/vomiting. Coronavirus screen: Vaccine status: Patient reports being unvaccinated. Ebola Screen: Patient denies travel to an Ebola-affected area in the 21 days before illness onset. Initial Sepsis Screen: Does the patient meet any 2 criteria? HR > 90 bpm. No. Patient's initial sepsis screen is negative. Does the patient have a suspected source of infection? No. Patient's initial sepsis screen is negative. Risk Assessment: Do you want to hurt yourself or someone else? Patient reports no desire to harm self or others. Onset of symptoms was May 17, 2023. 17:56 Method Of Arrival: Ambulatory [facility] 17:56 Acuity: FREDIS 4 nj Historical: - Allergies: 17:59 No Known Allergies; nj1 - PMHx: 17:59 None; nj1 - PSHx: 17:59 section; nj1 - Immunization history:: Client reports having NOT received the Covid vaccine. - Social history:: Smoking status: Patient denies any tobacco usage or history of. Assessment: 18:11 Reassessment: Patient appears in no apparent distress at this time. Patient is alert, nj1 oriented x 3, equal unlabored respirations, skin warm/dry/pink. Vital Signs: 17:56 BP 141 / 94; Pulse 100; Resp 16; Temp 99.5(O); Pulse Ox 100% on R/A; Weight 90.72 kg; nj1 Height 5 ft. 3 in. ; Pain 8/10; 17:56 Body Mass Index 35.43 (90.72 kg, 160.02 cm) [facility] 17:56 Pain Scale: Adult [facility] ED Course: 17:22 Patient arrived in ED. im 17:24 Unruly Soto PA is PHCP. cp 17:24 Unruly Tracy MD is Attending Physician. cp 17:52 Attending Physician role handed off by Unruly Tracy MD ec2 17:52 Mandeep Kuo MD is Attending Physician. ec2 17:59 Triage completed. nj1 18:00 Arm band placed on right wrist. nj1 18:11 Patient did not have IV access during this emergency room visit. nj1 Administered Medications: 18:11 Drug: Clindamycin PO 450 mg PO once Route: PO; nj1 Outcome: 18:03 Discharge ordered by . ec2 18:11 Discharged to home ambulatory, nj1 18:11 Condition: stable 18:11 Discharge instructions given to patient, Instructed on discharge instructions, follow up and referral plans. medication usage, wound care, Demonstrated understanding of instructions, follow-up care, medications, wound care, Prescriptions given X 1, 18:12 Patient left the ED. nj1 Signatures: Unruly Soto PA PA cp Jaco, Norma, RN RN nj1 Rosio Mcdermott Edwin, MD MD ec2
[2023-05-20 18:43] VITALS: BP 141/94; TEMP 99.5; O2SAT 100
== END 2023-05-20 18:12 | disposition home or self-care (01) ==
LOC: ER 17:20
DX: L03.317 Cellulitis of buttock (principal)
CPT/HCPCS: 99283

== ENCOUNTER 2024-01-17 20:05 | Emergency (ER) | payer SELFPAY ==
--- OUTSIDE RECORDS SUMMARY | 2024-01-17 20:10 | XMS REPORT | Continuity of Care Document ---
Author Name Unknown Address [address] [facility] [address] [place] [address] [facility] thconnect Address [address] [facility]. 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 Role Phone Pcp, Patient Does Not Have A Primary Care Physic florencia Demario Ritter Attending Clinician UnavailSeveriano Brady Attending Clinician [phone] Unknown, Attending Attending Clinician Unavailab SEVERIANO Verduzco Attending Clinician Unavailable Doctor Unassigned, Searchlight Attending Clinician U CACHORRO Pettit Attending Clinician Unavailable Markell Hamilton MD Attending Clinician [phone] UNKNOWN, ATTENDING Attending Clinician UnavailKristy Boykin PA-C Attending Clinician [phone] Demario Ritter Admitting Clinician Unavailab mg Payers Payer Name Policy Type Policy Number Effective Date Expirati on Date Source Allergies, Adverse Reactions, Alerts Allergy Name Allergy Type Status Severity Reaction(s) Onset Date Inactive Date Treating Clinician Comments Source No Known Allergie s DA Active U 01-11 00:00: 00 [facility] No Known Allergie s DA Active U 01-11 00:00: 00 [facility] NO KNOWN ALLERGIE S Drug Class Active [facility] Social History Social Habit Start Date Stop Date Quantity Comments Source Gender identity [facility] Sexual orientation [facility] History of Social function 2020-12-27 00:00:00 2020-12-27 00:00:00 [facility] Tobacco use and exposure 2019-08-04 00:00:00 2019-08-04 00:00:00 Smokeless tobacco non-user [facility] Sex Assigned At 2000 00:00:00 2000 00:00:00 [facility] Smoking Status Start Date Stop Date Source Never smoked tobacco [facility] Medications Ordered Medication Name Filled Medication Name Start Date Stop Date Current Medication? Ordering Clinician Indication Dosage Frequency Signature (SIG) Comments Components Source nirmatrelvi r-ritonavir (PAXLOVID) 300 mg (150 mg x 2)-100 mg tablet 02-06 00:00: 00 Yes [id number] 3{tbl} Take 3 tablets by mouth in the morning and 3 tablets in the evening. [facility] cetirizine (ZYRTEC) 10 mg tablet 12-27 00:00: 00 Yes [id number] 10mg Take 1 tablet by mouth daily. [facility] azelastine 137 mcg (0.1 %) nasal spray 12-27 00:00: 00 Yes [id number] 1{spray } Use 1 [place] in each nostril 2 (two) times daily. Use in each nostril as directed [facility] fluticasone propionate 50 mcg/actuati on nasal spray 12-27 00:00: 00 Yes [id number] 1{spray } Use 1 [place] in each nostril daily. [facility] azithromyci n 500 mg tablet 08-04 20:20: 36 Yes azithromyc in 500 mg tablet [facility] azithromyci n 250 mg tablet 08-04 00:00: 00 Yes [id number] 4 tabs now and 4 tabs in 1 week [facility] Vital Signs Vital Name Observation Time Observation Value Comments S may[place] Systolic blood pressure 2023-02-06 20:59:00 115 mm[Hg] [facility] Diastolic blood pressure 2023-02-06 20:59:00 82 mm[Hg] [facility] Heart rate 2023-02-06 20:59:00 83 /min [facility] Body temperature 2023-02-06 20:59:00 36.94 [facility] Respiratory rate 2023-02-06 20:59:00 16 /min [facility] Body height 2023-02-06 20:59:00 157.5 cm [facility] Body weight 2023-02-06 20:59:00 98.657 kg [facility] BMI 2023-02-06 20:59:00 39.78 kg/m2 [facility] Oxygen saturation in Arterial blood by Pulse oximetry 2023-02-06 20:59:00 97 /min [facility] Procedures Procedure Date / Time Performed Performing Clinicia n Source POCT SARS-COV-2 ANTIGEN (BINAX NOW) 2023-02-06 21:01:00 Severiano La [facility] ASSIGNMENT OF BENEFITS 2023-02-06 20:52:49 Docto r Unassigned, Searchlight [facility] [id number] 2020-01-13 00:00:00 SHEGR [facility] [id number] 2020-01-13 00:00:00 [facility] Encounters Start Date/Time End Date/Time Encounter Type Admission Type Attending Clinicians Care Facility Care Department Encounter ID Source 2020-01-12 10:48:00 Inpatient Demario Root [facility] [id number] 57 [facility] 2023-04-20 16:11:58 2023-04-20 16:11:58 Outpatient SFA SFA [id number] James Gee Joel 2023-04-09 15:37:58 2023-04-09 15:37:58 Outpatient SFA SFA [id number] James Gee Joel 2023-03-18 16:49:59 2023-03-18 16:49:59 Outpatient SFA SFA 1012 James Gee Joel 2023-02-11 00:00:00 2023-02-11 00:00:00 Telephone Severiano La [facility] 1..840.114 350.1.13.10 4.2.7.2.686 [id number] [facility] 2023-02-06 16:20:00 2023-02-06 16:40:00 Urgent Care Severiano La Unknown, Attending [facility] 1..840.114 350.1.13.10 4.2.7.2.686 [id number] [facility] 2023-02-06 16:20:00 2023-02-06 16:20:00 Outpatient R SEVERIANO LA [facility] [id number] [facility] 2023-02-06 00:00:00 2023-02-06 00:00:00 Orders Only Doctor Unassigned, Searchlight [facility] 1..840.114 350.1.13.10 4.2.7.2.686 [id number] [facility] 2022-11-23 17:09:00 2022-11-23 17:09:00 Outpatient [facility] [id number] James Maldonado 2022-11-19 13:31:16 2022-11-19 13:31:16 Outpatient [facility] 15 James Maldonado 2020-12-27 09:00:00 2020-12-27 09:00:00 Outpatient R CACHORRO MCPHERSON [facility] [id number] [facility] 2019-08-04 20:06:09 2019-08-04 20:21:09 Urgent Care Markell Hamilton [facility] 1..840.114 350.1.13.10 4.2.7.2.686 [id number] 2019-08-04 20:15:00 2019-08-04 20:15:00 Outpatient R KUN, ATTENDING [facility] [id number] [facility] 2019-07-20 00:00:00 2019-07-20 00:00:00 Telephone Kristy Huerta [facility] Bhavesh Kaiser 1.2.840.114 350.1.13.10 4.2.7.2.686 [id number] 2019-07-19 19:10:39 2019-07-19 19:58:04 Urgent Care Kristy Huerta [facility] Health [facility] Bhavesh 1.2.840.114 350.1.13.10 4.2.7.2.686 [id number] Results Test Description Test Time Test Comments Results Result Co mments Source [facility]AT, [id number] 19:06:50* Test Item Value Reference Range Interpretation Comme nts GONORRHEA, NAAT (test code = 85394) NEGATIVE NEGATIVE IMPORTANT NO DUANE: SEE ANNOUNCEMENT AT [email or web address] Note: Assay methodology is nucleic acid amplification by branch banker mediated amplification (TMA) utilizing the Aptima Combo 2 Assay. CHLAMYDIA, NAAT (test code = 66575) NEGATIVE NEGATIVE IMPORTANT NO DUANE: SEE ANNOUNCEMENT AT [email or web address] Note: Assay methodology is nucleic acid amplification by branch banker mediated amplification (TMA) utilizing the Aptima Combo 2 Assay. UNLESS OTHERWISE INDICATED, ALL TESTING PERFORMED [facility] [address] [place] [address] ROTARY SLICING MACHINE OPERATOR: NERI GREENWOOD M.D. CLIA NUMBER [id number] [facility] [place]. [id number] 03:29:17* Test Item Value Reference Range Interpretation Comme nts RPR RESULT (test code = 3501) NON-REACTIVE NON-REACTIVE RPR TITER (test code = 3500) NOT INDIC. TITER NOT INDIC. HIV 1/2 4TH GEN, RFLX [id number] 03:12:58* Test Item Value Reference Range Interpretation Comme nts HIV 1/2 4TH GEN, RFLX CONF ( test code = 3514) NON-REACTIVE NON-REACTIVE HEPATITIS PANEL, [id number] 03:12:58* Test Item Value Reference Range Interpretation Comme nts HEPATITIS A IgM (test code = 94264) NON-REACTIVE NON-REACTIVE HEPATITIS B CORE IgM (test code = 4644) NON-REACTIVE NON-REACTIVE HEPATITIS B SURF AG (test code = 2739) NON-REACTIVE NON-REACTIVE HEPATITIS C ANTIBODY (test code = 4675) NON-REACTIVE NON-REACTIVE INTERPRETATION HEPATITIS A: (test code = 2552) (NOTE) Hepatitis A serology shows no evidence of acute hepatitis A. INTERPRETATION HEPATITIS B: (test code = 00500) (NOTE) Hepatitis B serology shows no evidence of acute hepatitis B andno indication of exposure to hepatitis B virus in the previous miguel eight months. INTERPRETATION HEPATITIS C: (test code = 39696) (NOTE) Hepatitis C serology shows no evidence of exposure to hepatitisC virus at this time. It can take up to 12 months after exposure tothe hepatitis C virus for antibodies to become detectable in the blood in certain patients. PLACENTA THIRD [id number] 08:49:00 RUN DATE: 01/19/20 [facility] PAGE 1 RUN TIME: 1140 Specimen Inquiry RUN USER: INTERFACE -------- ----PATIENT: LOLY GERSON HIGHTOWER LOC: [facility] U #: [id number] AGE/SX: / ROOM: [facility] RE01/12/20REG DR: Demario Ritter MD : 89 BED: A DIS: 01/16/20 STATUS: DIS IN TLOC: ------ ------ SPEC #: [id number] RECD: 01/16/20 STATUS: CRISTEL REJoon #: [id number] PRATIMA: 01/16/20- SUBM DR: Johan Ritter MD ENTERED: 01/16/20 SP TYPE: PLACIII OTHR DR: ORDERED: LEVEL V SURGICA CODES: [id number] - PLACENTA, NOS PROCEDURES: LEVEL V SURGICA [...] 2) - focal villous edema CPT code(s): 54671 [facility] GROSS DESCRIPTION The specimen was received in [...] margin Membrane color: Green-mullins Other membrane findings: Thickenedand opaque The trimmed placental weight: 686 gm Disk measurement: 23 x 21 x 3.6 cm in greatest dimension Accessory lobes: None CONTINUED ON NEXT PAGE RUN DATE: 01/19/20 [facility] PAGE 2 RUN TIME: 1140 Specimen Inquiry RUN USER: INTERFACE SPEC #: [id number] PATIENT: GERSON RAMIREZ #[id number] (Continued) GROSS DESCRIPTION (Continued) Maternal surface: Lobulated and intact and containsfocal pinpoint calcium deposits Parenchyma: Red, beefy, and spongy Parenchyma lesions: None Cassettes: A1 through A4 varun/rosa elena 01/16/20 Signed Jessica Hale MD 01/19/20 0849 ------ ------ END OF REPORT HGB [id number] 18:45:00* Test Item Value Reference Range Interpretation Comme nts HEMOGLOBIN (test code = HGB) 6.1 g/dL 10.7-13.9 LL RESULTS VERIFIED BY REPEAT ANALYSISRESULTS CALLED TO ALICIA CHANEL.READ BACK & CONFIRMED?Y .BY F.LAB.RV 01/15/20 6413. HEMATOCRIT (test code = HCT) 21.7 % 32.1-42.1 L HGB [id number] 08:10:00* Test Item Value Reference Range Interpretation Comme nts HEMOGLOBIN (test code = HGB) 6.2 g/dL 10.7-13.9 LL RESULTS CALLED T Marlene AdamesREAD BACK & CONFIRMED? Y.BY F.LAB.TM 01/14/20 0809.Results verified by repeat analysis HEMATOCRIT (test code = HCT) 22.4 % 32.1-42.1 L VENOUS BLOOD [id number] 17:20:00* Test Item Value Reference Range Interpretation Comme [facility] VENOUS BLOOD GAS PH (test co de [...] (test code = FIO2V) 21.0 % PROTHROMBIN [id number] 08:51:00* Test Item Value Reference Range Interpretation Comme [facility] PROTHROMBIN TIME PATIENT (te st code = PTP) 11.2 secs 10.4-12.4 N IS PATIENT ON ANTICOAGULANTS ? NINTERNATIONAL NORMAL [id number] 08:51:00* Test Item Value Reference Range Interpretation [...] IS PATIENT ON ANTICOAGULANTS ? NTHROMBOPLASTIN TIME [id number] 08:51:00* Test Item Value Reference Range Interpretation Comme nts THROMBOPLASTIN TIME PARTIAL (test code = PTT) 25.6 secs 22-38 N IS PATIENT ON ANTICOAGULANTS ? NCBC W/AUTO [id number] 08:42:00* Test Item Value Reference Range Interpretation [...] (test code = PLTMR) NORMAL NORMAL WBC [id number] 08:42:00* Test Item Value Reference Range Interpretation [...] de = PLTMORPH) NORMAL NORMAL CBC W/AUTO [id number] 08:41:00* Test Item Value Reference Range Interpretation [...] (test code = PLTMR) NORMAL NORMAL WBC [id number] 08:41:00* Test Item Value Reference Range Interpretation Comme nts SEGMENTED NEUTROPHILS (test code = SEG) % 56.5-79 .4 LYMPHOCYTE (test code = LYMPH) % 20-40 CBC W/AUTO [id number] 08:41:00* Test Item Value Reference Range Interpretation [...] (test code = PLTMR) NORMAL NORMAL WBC [id number] 08:41:00* Test Item Value Reference Range Interpretation Comme nts SEGMENTED NEUTROPHILS (test code = SEG) % 56.5-79 .4 LYMPHOCYTE (test code = LYMPH) % 20-40 LACTIC [id number] 08:14:00* Test Item Value Reference Range Interpretation Comme nts LACTIC ACID (test code = LACT) 1.8 MMOL/L 0.5-2.2 N Comments to Compensation Analyst: ALREADY CAMECOMPREHENSIVE METABOLIC [id number] 07:59:00* Test Item Value Reference Range Interpretation [...] = ALKP) 161 units/L 46-116 H URINALYSIS [id number] 17:16:00* Test Item Value Reference Range Interpretation [...] UA NITRITE DIPSTICK (test co de = LAKHWINDRE) NEGATIVE NEGATIVE UA LEUKOCYTE ESTERASE DIPSTI CK (test code = LEUU) NEG NEGATIVE AG HEPATITIS B [id number] 16:18:00* Test Item Value Reference Range Interpretation Comme nts AG HEPATITIS B SURFACE (test code = HBSAG) NONREACTIVE NONREACTIVE IS CONSENT FORM SIGNED FOR HIV TESTING? YAB HEPATITIS C [id number] 16:18:00* Test Item Value Reference Range Interpretation Comme nts AB HEPATITIS C (test code = HCVAB) NONREACTIVE NONREACTIVE SIGNAL TO CUTOFF (test code = CUTOFF) 0.21 <0.80 N IS CONSENT FORM SIGNED FOR HIV TESTING? YAB [id number] 16:18:00* Test Item Value Reference Range Interpretation Comme nts AB TREPONEMA (test code = TREPAB) NONREACTIVE NONREACTIVE IS CONSENT FORM SIGNED FOR HIV TESTING? YAB HIV 1 16:18:00* Test Item Value Reference Range Interpretation Comme nts AB HIV 1 2 (test code = NBH97JA) NONREACTIVE NONREACTIVE Done by [employer] HIV Ag/Ab Combo Screen IS CONSENT FORM SIGNED FOR HIV TESTING? YCOVID 19 Asymptomatic IH [id number] 13:35:00* Test Item Value Reference Range Interpretation [...] testsfor detection and/or diagnosis of COVID-19 under Suahcxh292(b)(1) of the Act, 21 U.S.C. 360bbb-3(b)(1), unless theauthorization is terminated or revoked sooner. AG HEPATITIS B [id number] 13:11:00* Test Item Value Reference Range Interpretation Comme nts AG HEPATITIS B SURFACE (test code = HBSAG) NONREACTIVE NONREACTIVE IS CONSENT FORM SIGNED FOR HIV TESTING? YAB HEPATITIS C [id number] 13:11:00* Test Item Value Reference Range Interpretation Comme nts AB HEPATITIS C (test code = HCVAB) NONREACTIVE SIGNAL TO CUTOFF (test code = CUTOFF) <0.80 IS CONSENT FORM SIGNED FOR HIV TESTING? YAB [id number] 13:11:00* Test Item Value Reference Range Interpretation Comme nts AB TREPONEMA (test code = TREPAB) NONREACTIVE NONREACTIVE IS CONSENT FORM SIGNED FOR HIV TESTING? YAB HIV 1 13:11:00* Test Item Value Reference Range Interpretation Comme nts AB HIV 1 2 (test code = CDQ46NW) NONREACTIVE IS CONSENT FORM SIGNED FOR HIV TESTING? YPIH [id number] 12:52:00* Test Item Value Reference Range Interpretation Comme nts CREATININE (test code = CREAT) 0.7 mg/dL 0.5-1.0 N SGOT/AST (test code = AST) 14 units/L 15-37 L SGPT/ALT (test code = ALT) <6 units/L 12-78 L LACTIC DEHYDROGENASE(LDH) (t est code = LDH) 213 units/L 81-234 N : *CBC W/AUTO [id number] 12:27:00* Test Item Value Reference Range Interpretation [...] Notes Date/Time Note Provider Source 2023-02-11 15:51:13 Formatting of this n ote might be different from the original. Informed pt the medication and test results she was seeing regarding Gc/chlamydia were from 2019, not her visit from 02/06/2023. Pt verbalized understanding. Marika Rodriguez RN [facility] 2023-02-11 15:40:36 Formatting of this n ote might be different from the original. Pt want to go over meds and labs she seeing std med and was just seen for covid Trinidad Hightower [facility] 2020-03-07 21:11:00 [id number] [facility] [place] [id number] PATIENT NAME: GERSON RAMIREZ ADMIT DATE: 01/12/20 ACCOUNT NO: [id number] ROOM NO: 4422 AGE: 19 SEX: F ADMITTING PHYSICIAN: Demario Ritter MD ATTENDING PHYSICIAN: Demario Ritter MD ADMISSION DATE: 01/12/2020 DISCHARGE DATE: 01/16/2020 ADMISSION DIAGNOSES: 1. Term . 2. -induced hypertension. ADDITIONAL DIAGNOSIS: Arrest of descent. PROCEDURE PERFORMED: Primary low transverse delivery. DISPOSITION: The patient discharged home in good condition. DISCHARGE MEDICATIONS: Include [place], Motrin, and multivitamin. SUMMARY OF HOSPITAL COURSE: The patient was admitted at 40 weeks' gestation with elevated blood pressures and headache. She was found to be in early labor; however, underwent Pitocin augmentation, progressed to complete, ____, +1 and had an attempted trial of forceps, however, had arrest of descent without further use of forceps and underwent primary as previously dictated. During her labor course, she developed chorioamnionitis and sepsis protocol was initiated. Postoperatively, the patient did well. She defervesced and vital signs were stabilized. Her blood pressure normalized. Hemoglobin and hematocrit showed an acute drop with hemoglobin 6.7; however, it was stable and the patient was ambulating without difficulty and without symptoms of anemia. She tolerated regular diet, had good pain control. By postoperative day #3, the patient was meeting all postoperative goals. She was discharged home in good condition. DISCHARGE INSTRUCTIONS: Discharge medications, wound care instructions were discussed with the patient and family. She was scheduled for followup in the office in 2 weeks for incision check. Dictated By: Demario Ritter MD WT: DS:FJORGE/LUIS/TOM Conf#: [id number]/DID#: [id number] Authenticated by Demario Ritter MD On 03/09/2020 12:25:50 PM PATIENT NAME: GERSON RAMIREZ at 1226 PATIENT NAME: GERSON RAMIREZ [facility] 2020-01-16 07:54:[address] [facility] OB Postpart Progr Note REPORT#:[id number] REPORT STATUS: Signed DATE:01/16/20 TIME: 0754 PATIENT: GERSON RAMIREZ UNIT #: [id number] ROOM/BED: 4422-A : 98 AGE: 19 SEX: F ATTEND: Demario Ritter MD ADM AUTHOR: Demario Ritter MD * ALL edits or amendments must be made on the electronic/computer document * Subjective Subjective Status/Day: post operative (d3) Patient reports: Patient reports: Yes no complaints, Yes pain management effective, Yes tolerating po well Objective Nursing Documentation Review Nursing Data: The data set between the solid lines has been imported from nursing documentation. Any exceptions have been noted below under Provider comments. Feeding preference: Provider comments on imported nursing data: [] General VS: Vital Signs: Date Time Temp Pulse Resp B/P B/P Pulse O2 O2 Flow FiO2 Mean Ox Delivery Rate 01/15 0422 97.8 98 18 121/81 01/15 0032 98.4 91 18 116/74 01/14 1650 98.5 120 18 123/81 01/14 1430 99.1 123 20 120/66 100 01/14 1150 122 01/14 1150 99.1 20 128/71 97 01/14 0830 98.2 108 18 116/79 99 Patient Weight Weight (lb): 238 Weight (oz): Weight (kg): 107.955 Physical Exam Neuro: Exam: alert, oriented x3 Abdomen: soft, no abnormal tenderness Incision site: well approximated edges, dry, no drainage, no inflammation Uterus: firm, non-tender Result Findings/Data: Laboratory Tests: 01/14 1831 Hematology Hgb (10.7 - 13.9 g/dL) 6.1 *L Hct (32.1 - 42.1 %) 21.7 L Diagnosis, Assessment Plan Diagnosis, Assessment Plan Assessment: nml progress, acute blood loss anemia, chronic blood loss anemia Plan: routine care, discharge today, option of transfusion d/w pt, asx, ambulating without difficulty, and declines at 0755 RPT #:[id number] END OF REPORT [facility] 2020-01-15 20:59:00 [facility] ([facility]) Clinical Note REPORT#:[id number] REPORT STATUS: Signed DATE:01/15/20 TIME: 2058 PATIENT: GERSON RAMIREZ UNIT #: [id number] ROOM/BED: [address] : 98 AGE: 19 SEX: F ATTEND: Demario Ritter MD ADM AUTHOR: Yusra Wong MD * ALL edits or amendments must be made on the electronic/computer document * Clinical Note Note: Brief interval note S: patient delivered by c/s [...] She will monitor symptoms. at 2104 RPT #:[id number] END OF REPORT [facility] 2020-01-15 08:12:00 [facility] ([facility]) OB Postpart Progr Note REPORT#:[id number] REPORT STATUS: Signed DATE:01/15/20 TIME: 811 PATIENT: GERSON RAMIREZ UNIT #: [id number] ROOM/BED: [address] : 98 AGE: 19 SEX: F ATTEND: Demario Ritetr MD [facility] AUTHOR: Demario Ritter MD * ALL edits or amendments must be made on the electronic/computer document * Subjective Subjective Status/Day: post operative (d2) Patient reports: Patient reports: Yes no complaints, Yes pain management effective, Yes tolerating po well Objective Nursing Documentation Review Nursing Data: The data set between the solid lines has been imported from nursing documentation. Any exceptions have been noted below under Provider comments. Feeding preference: Provider comments on imported nursing data: [] General VS: Vital Signs: Date Time Temp Pulse Resp B/P B/P Pulse O2 O2 Flow FiO2 Mean Ox Delivery Rate 01/14 0400 98.6 106 16 108/72 01/14 0011 98.3 100 16 131/78 01/13 1954 98.4 125 20 112/69 01/13 1625 97.5 18 113/71 01/13 1230 97.9 109 20 110/69 Patient Weight Weight (lb): 238 Weight (oz): Weight (kg): 107.955 Physical Exam Neuro: Exam: alert, oriented x3 Abdomen: soft, no abnormal tenderness Incision site: well approximated edges, dry, no drainage, no inflammation Uterus: firm, non-tender Diagnosis, Assessment Plan Diagnosis, Assessment Plan Assessment: nml progress, acute blood loss anemia, chronic blood loss anemia Plan: routine care, discharge tomorrow at 0813 RPT #:[id number] END OF REPORT [facility] 2020-01-14 11:41:00 [facility] ([facility]) OB Postpart Progr Note REPORT#:[id number] REPORT STATUS: Signed DATE:01/14/20 TIME: 1141 PATIENT: GERSON RAMIREZ UNIT #: [id number] ROOM/BED: [address] : 98 AGE: 19 SEX: F ATTEND: Demario Ritter MD ADM AUTHOR: Padma Arguelles MD * ALL edits or amendments must be made on the electronic/computer document * Subjective Subjective Status/day: post , post operative (d1) Patient reports: Patient reports: Yes: normal lochia, pain management effective, tolerating po well, voiding well, tolerating ambulation. No: complaints. Objective Nursing Documentation Review Nursing data: The data set between the solid lines has been imported from nursing documentation. Any exceptions have been noted below under Provider comments. Feeding preference: Provider comments on imported nursing data: [] General VS: Vital Signs Date Temp Pulse Resp B/P B/P Mean Pulse Ox FiO2 01/12-01/13 97.9-100.3 108-137 11-28 86-148/52-7 66.0-101.0 100 9 Last Documented: Result Date Time B/P 99/64 01/14 808 Temp 97.9 01/14 808 Pulse 108 01/14 808 Resp 20 01/14 808 B/P Mean 78.0 01/13 2000 Pulse Ox 100 01/13 2000 Patient Weight Weight (lb): 238 Weight (oz): Weight (kg): 107.955 Physical Exam Neuro: Exam: alert, oriented x3 Abdomen: soft, no abnormal tenderness Uterus: involution appropriate, non-tender Fundus: non-tender Lochia: normal Lower extremities: Edema: trace Result Results: no new labs, labs reviewed, vital signs stable Diagnosis, Assessment Plan Diagnosis, Assessment Plan Assessment: nml progress, acute blood loss anemia, chronic blood loss anemia Plan: routine care Plan discussed with: patient at 1143 RPT #:[id number] END OF REPORT [facility] 2020-01-13 17:35:00 [facility] [facility] OB Delivery Note REPORT#:[id number] REPORT STATUS: Signed DATE:01/13/20 TIME: 173 PATIENT: GERSON RAMIREZ UNIT #: [id number] ROOM/BED: [address] : 98 AGE: 19 SEX: F ATTEND: Demario Ritter MD ADM AUTHOR: Demario Ritter MD * ALL edits or amendments must be made on the electronic/computer document * OB Delivery Nursing Documentation Review Nursing data: The data set between the solid lines has been imported from nursing documentation. Any exceptions have been noted below under Provider comments. _ ROM date: 01/12/20 ROM time: 1615 Membranes rupture method: AROM Amniotic fluid color: Clear Amniotic fluid amount: EGA (weeks/days): 40.0 EGA at admit (weeks): EGA at delivery (weeks): 40 Steroids prior to arrival: Antibiotic prophylaxis given: No evaluation at delivery: Delivery date A: 01/13/20 Delivery time A: 1706 Birthweight (gm) A: Weight (lb) A: Weight (oz) A: Gender infant A: Female 1 minute infant A: 5 minutes infant A: 10 minutes A: Cord pH obtained A: Vacuum time infant A: Vacuum # pulls A: Vacuum # popoffs A: QBL at delivery: __ Provider comments on imported nursing data: [] Pre-delivery evaluation at delivery: team Admission EGA (wks/days): 40 weeks Baby A Information Baby A information Delivery date: 01/13/20 Delivery time: 1706 status: live born Wt of baby (lbs/oz): 8/6 Gender: female 1 minute: 8 5 minutes: 9 Presentation: vertex ABG details Baby A Cord blood gases: collected Nuchal cord Baby A Nuchal cord: no Delivery section Primary indication: arrest of descent, chorio Priority: urgent Antibiotic prior to incision: more than 1 dose )(SCDs applied activated: Yes Uterine incision: low transverse Consent: indication discussed, questions answered, pt consent to op delivery Mother's condition: mother stable 's condition: to NICU Op/Inv Proc Note - Brief )( Procedure(s) performed: prim low transverse c/s )( Primary Surgeon: Layne Ritter )( Leno Sewer(s): D Black )( Pre-procedure diagnosis: 40 wks, primip, GHTN, early labor, choirio, arrest of descent )( Post-procedure diagnosis: same )( Technique/Procedure: LTCS Anesthesia: epidural anesthesia )( Estimated blood loss (ml): 700 )( Specimen removed/altered: placenta )( Complications: none )( Finding(s): nl ut/ov/tubes. hemostatic. counts correct. Blood Loss/Details Blood loss at delivery: <1000 ml, no more than expected at 1737 RPT #:[id number] END OF REPORT [facility] 2020-01-13 16:29:00 [facility] ([facility]) Clinical Note REPORT#:[id number] REPORT STATUS: Signed DATE:01/13/20 TIME: 1629 PATIENT: GERSON RAMIREZ UNIT #: [id number] ROOM/BED: [address] : 98 AGE: 19 SEX: F ATTEND: Demario Ritter MD ADM AUTHOR: Demario Ritter MD * ALL edits or amendments must be made on the electronic/computer document * Clinical Note Note: pushing x3 hrs. options of FAVD vs C/S d/w pt, agreed to trial of forceps. attempt made at FAVD, forceps applied and traction applied with maternal expulsive efforts, but no descent. at this time rec for C/S and pt agrees. will proceed for C/S TEODORA. at 1630 RPT #:[id number] END OF REPORT [facility] 2020-01-13 14:34:00 [facility] ([facility]) Clinical Note REPORT#:[id number] REPORT STATUS: Signed DATE:01/13/20 TIME: 1434 PATIENT: GERSON RAMIREZ UNIT #: [id number] ROOM/BED: [address] : 98 AGE: 19 SEX: F ATTEND: Demario Ritter MD ADM AUTHOR: Demario Ritter MD * ALL edits or amendments must be made on the electronic/computer document * Clinical Note Note: C/C/+1. pushing, not much progress. FHT 170, still with good variability. abx running. will cont pushing, hope for . at 1434 RPT #:[id number] END OF REPORT [facility] 2020-01-13 11:10:00 [facility] ([facility]) Clinical Note REPORT#:[id number] REPORT STATUS: Signed DATE:01/13/20 TIME: 1110 PATIENT: GERSON RAMIREZ UNIT #: [id number] ROOM/BED: [address] : 98 AGE: 19 SEX: F ATTEND: Demario Ritter MD ADM AUTHOR: Alona Hernandez MD * ALL edits or amendments must be made on the electronic/computer document * Clinical Note Note: cx 9/c/+1 good change FHT good variablity pos acele fht 170' but pt still febrile 100.5 will give motrin since close to delivery at 1112 RPT #:[id number] END OF REPORT [facility] 2020-01-13 09:52:00 [facility] ([facility]) Clinical Note REPORT#:[id number] REPORT STATUS: Signed DATE:01/13/20 TIME: 951 PATIENT: GERSON RAMIREZ UNIT #: [id number] ROOM/BED: [address] : 98 AGE: 19 SEX: F ATTEND: Demario Ritter MD ADM AUTHOR: Alona Hernandez MD * ALL edits or amendments must be made on the electronic/computer document * Clinical Note Note: cx 7/c/0 good change cont pitocin at 0952 RPT #:[id number] END OF REPORT [facility] 2020-01-13 08:49:00 [facility] ([facility]) Clinical Note REPORT#:[id number] REPORT STATUS: Signed DATE:01/13/20 TIME: 848 PATIENT: GERSON RAMIREZ UNIT #: [id number] ROOM/BED: [address] : 98 AGE: 19 SEX: F ATTEND: Demario Ritter MD ADM AUTHOR: Constance Monahan MD * ALL edits or amendments must be made on the electronic/computer document * Clinical Note Note: 19 y/o G1 @ 40w1d admitted for IOL due to GHTN, now with chorioamnionitis. Comfortable with epidural. No PIH s/sx Exam: AAO x 4 Pulm: unlabored breathing Abd: soft, gravid, NTTP : 80/-2 FHTs Cat 2 - tachycardia, +moderate variability Moraine q1-3min IOL - SVE /-2@0630 - AROM @ 1630, clear, IUPC placed - on pitocin, continue titration to MVU>200 - GBS neg Chorio -based on maternal fever, and maternal tachycardia -last fever 101 @ 0845 -sepsis protocol initiated, s/p Unasyn x 1; now on amp/gent and tylenol PO GHTN - BPs normal to mild ranging - pt asx Fetus - racquel 8# slow progression of labor and with chorioamnionitis, will continue pitocin titration and reevaluate for surgical delivery. at 0854 RPT #:[id number] END OF REPORT [facility] 2020-01-13 08:05:00 [facility] ([facility]) Clinical Note REPORT#:[id number] REPORT STATUS: Signed DATE:01/13/20 TIME: 804 PATIENT: GERSON RAMIREZ [facility] [id number] [facility] AGE: 19 SEX: F ATTEND: Demario Ritter MD ADM AUTHOR: Shwetha Alston MD * ALL edits or amendments must be made on the electronic/computer document * Clinical Note Note: Responded to pt room for code sepsis Pt is 19 yo G1 at 40 1/7 weeks admitted for induction due to PIH at term. Pt currently reports feeling chilled. No chest pain, cough. No recent GI issues or dysuria. Pt comfortable with epidural and not reporting any abdominal pain. Temp-100.5 128/74 111 NAD Lungs-cta B CV-tachy with systolic ejection murmur Abd-obese/g/s Ext- no cords; 1+ edema IV site- no erythema FHT-170 normal variability; + accels; mild variable noted toco- q 2-5 40 1/7 weeks with sepsis based on temp and tachycardia with most likely etiology as chorio. Sepsis bundle initiated. Primary OB has ordered NS 500 ml and amp and gent. Will await labs to determine need for further fluid bolus as per bundle FHT with tachycardia as response to maternal temp but otherwise with normal variability at 0811 RPT #:[id number] END OF REPORT [facility] 2020-01-13 03:41:00 [facility] ([facility]) Clinical Note REPORT#:[id number] REPORT STATUS: Signed DATE:01/13/20 TIME: 034 PATIENT: GERSON RAMIREZ UNIT #: [id number] ROOM/BED: [address] : 98 AGE: 19 SEX: F ATTEND: Demario Ritter MD ADM AUTHOR: Constance Monahan MD * ALL edits or amendments must be made on the electronic/computer document * Clinical Note Note: 19 y/o G1 @ 40w1d admitted for IOL due to GHTN. Comfortable with epidural. No PIH s/sx Exam: AAO x 4 Pulm: unlabored breathing Abd: soft, gravid, NTTP : FHTs Cat 1 Moraine q1min IOL - SVE /-3@0330 - AROM @ 1630, clear, IUPC placed - on pitocin, MVU>200 x 3h - GBS neg - continue pitocin titration GHTN - BPs normal to mild ranging - pt asx Fetus - racquel 8# at 0348 RPT #:[id number] END OF REPORT [facility] 2020-01-12 16:22:00 [facility] ([facility]) Clinical Note REPORT#:[id number] REPORT STATUS: Signed DATE:01/12/20 TIME: 1622 PATIENT: GERSON RAMIREZ UNIT #: [id number] ROOM/BED: [address] : 98 AGE: 19 SEX: F ATTEND: Demario Ritter MD ADM AUTHOR: Demario Ritter MD * ALL edits or amendments must be made on the electronic/computer document * Clinical Note Note: cvx 3/50/-2. AROM clear, IUPC placed. FHT 130s, Cat I. labs wnl. cont pit, antic . at 1622 RPT #:[id number] END OF REPORT [facility] 2020-01-12 11:50:00 [facility] ([facility]) OB Admission / H P REPORT#:[id number] REPORT STATUS: Signed DATE:01/12/20 TIME: 1150 PATIENT: GERSON RAMIREZ UNIT #: [id number] ROOM/BED: [address] : 98 AGE: 19 SEX: F ATTEND: Demario Ritter MD ADM AUTHOR: Demario Ritter MD * ALL edits or amendments must be made on the electronic/computer document * OB Admission H P Hx Chief complaint: elevated blood pressure, uterine contractions, headache HPI: Pt seen in office this AM at 40 wks, c/o GAVIN off and on for past week. feeling some ctx, no VB/LOF. BP elevated in office. good FM. history: : 1 Current : EDC: 01/12/20 Admission EGA (wks/days): 40 weeks Labs: Blood type: O Rh: positive Rubella: immune Hepatitis B: negative HIV: negative STD: negative Syphilis: currently negative GBS: negative Procedures: ultrasound, genetic testing, non stress test Past medical history: denies PMH Past surgical history: eye Social history: no alcohol use, no tobacco use, no drug use Objective General VS: Patient Weight Weight (lb): Weight (oz): Weight (kg): Physical Exam HEENT: normocephalic w/o injury Neuro: Exam: alert, oriented x3 Abdomen: gravid, soft, no abnormal tenderness Uterine activity: Monitor: toco Frequency (description): regular Frequency (minutes): 2 Pelvic exam: Pelvis clinically adequate: yes, inlet appears appropriate, pubic bone config appropr, no midpelvic contraction Vulvar lesions: none, no evidence herpetic les, no evidence of other STD Vagina: normal, non-septated, w/o apparent lesions Cervical/ exam: Dilatation (cm): 3 Effacement (%): 50 Est wt (gms): 3500 Suspected macrosomia: No Suspected > 5000 grams: Yes station: - 2 presentation: cephalic Membranes: Membranes: Intact Baby A: Baby A baseline: 130 bpm Baby A variability: moderate 6-25 bpm Baby A accelerations: 15 X 15 Baby A decelerations: none Baby A FHR category: category 1 Diagnosis, Assessment Plan Diagnosis, Assessment Plan Free Text A P: 40 wks, elevated BPs, GAVIN, ctx. check PIH labs, mag if develops severe features. pit augmentation if needed. antic . at 1155 RPT #:[id number] END OF REPORT [facility]
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
[2024-01-18] MEDS ORDERED: ACETAMINOPHEN 500 MG TAB ONE (01:02)
[2024-01-18] MEDS ORDERED: LIDOCAINE 1% 20 ML MDV ONE (01:02)
[2024-01-18] MEDS ORDERED: CEPHALEXIN 250 MG CAP ONE (01:02)
[2024-01-18] MEDS ORDERED: IBUPROFEN 400 MG TAB ONE (01:03)
[2024-01-18] MEDS ORDERED: ONDANSETRON 4 MG (ODT) TAB ONE (01:03)
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
[2024-01-18 02:19] VITALS: BP 136/75; TEMP 98.7; O2SAT 97
== END 2024-01-18 02:13 | disposition home or self-care (01) ==
LOC: ER 20:05
PROC: 0HQ1XZZ Repair Face Skin, External Approach (ICD-10-PCS; principal; 2024-01-18)
DX: S02.2XXA Fracture of nasal bones, initial encounter for closed fracture (principal); J34.2 Deviated nasal septum; Y04.2XXA Assault by strike against or bumped into by another person, initial encounter
CPT/HCPCS: 70450; 70486; 76377; J2001; Q0162